=== PATIENT | female | born 1930 | race Caucasian/White ===

== ENCOUNTER 2018-08-06 16:13 | Inpatient (IN) | payer MEDICARE, OTHER ==
[2018-08-06 16:58] VITALS: BP 198/86
[2018-08-06] MEDS ORDERED: Magnesium Hydroxide (MOM) 30 mL UDC PO PRN (17:00)
[2018-08-06] MEDS ORDERED: Maalox 30 mL Cup PO PRN (17:00)
--- NOTE | 2018-08-06 20:33 | History & Physical ---
ADMIT DATE: 08/06/2018 HISTORY OF PRESENT ILLNESS: The patient is an 87-year-old female with long history of hypertension, hyperlipidemia, degenerative joint disease, psychosis, admitted to [facility] on 08/06/2018 for above treatment. The patient admitted under Dr. Wright's service. The patient denies any chest pain, shortness of breath, nausea, vomiting, fever or chills. On arrival, her systolic blood pressure was above 200. The patient has apparently been refusing taking her medication. The patient denies any chest pain, nausea, vomiting, fever or chills. PAST MEDICAL HISTORY: Hypertension, hyperlipidemia, degenerative joint disease and psychosis. PAST SURGICAL HISTORY: Hysterectomy. ALLERGIES: None. MEDICATIONS: Follow admission reconciliation. SOCIAL HISTORY: No smoking or alcohol. No drugs. FAMILY HISTORY: Noncontributory. REVIEW OF SYSTEMS: IMMUNOSYSTEM: No history of chronic immune disorder. CARDIOVASCULAR SYSTEM: No coronary artery disease. She has history of hypertension. ENDOCRINE SYSTEM: No diabetes or thyroid problem. GASTROINTESTINAL SYSTEM: No upper or lower gastrointestinal bleed. NEUROLOGICAL SYSTEM: No seizure disorder. SKELETOMUSCULAR SYSTEM: No muscular dystrophy. HEMATOLOGIC SYSTEM: No bleeding tendencies. RESPIRATORY SYSTEM: No asthma. GENITOURINARY: No dysuria or hematuria. PHYSICAL EXAMINATION: GENERAL: She is awake, alert and oriented. VITAL SIGNS: Temperature 97.8, heart rate 81 and blood pressure 198/86. HEENT: Normocephalic. Pupils equal, reacting to light and accommodation. Sclerae clear. NECK: Supple. Negative for lymphadenopathy, JVD or bruit. CHEST: Entry of air bilaterally normal. No rhonchi or wheezing. HEART: S1 and S2 normal. No gallop rhythm. ABDOMEN: Soft and bowel sounds positive. EXTREMITIES: No edema. BACK: Nontender. SKIN: Intact. BREAST, PELVIC AND RECTAL: Exam done by primary physician, no complaint. NEUROLOGIC: She is awake, alert, oriented. No focal motor or sensory deficits. Cranial nerves 2-12 are intact. ASSESSMENT: 1. Hypertension. 2. Hyperlipidemia. 3. Degenerative joint disease. 4. Psychosis. PLAN: The patient admitted to [facility] under Dr. Wright's service. Medical problems to be addressed during hospitalization are psychosis and hypertension. Medical problems to be addressed at discharge are psychosis, hypertension, hyperlipidemia, degenerative joint disease. The patient is medically stable for activity. CBC and CMP for tomorrow ordered. Thank you, Dr. Wright for asking me to see your patient. JOB# [id number]
[2018-08-06] MEDS ORDERED: Sulfamethoxazole/TMP 800/160mg Tab PO SCH (21:00)
[2018-08-07] MEDS: Multivitamin Tab PO SCH (09:31)
[2018-08-07] MEDS: Lactobacillus Rhamnosus GG 15 Billion CFU CAP.SPRINK PO SCH (09:31)
[2018-08-07] MEDS ORDERED: Probiotic Screen MC PRN (10:55)
--- NOTE | 2018-08-07 11:48 | Psychiatric Evaluation ---
DATE OF SERVICE: PSYCHIATRIC INITIAL EVALUATION AND MENTAL STATUS EXAM PATIENT'S AGE: 87-year-old. SEX: Female. PHYSICIAN: Dr. Qiu. CHIEF COMPLAINT: Delusion and paranoia. HISTORY OF PRESENT ILLNESS: The patient is an 87-year-old female who I transferred from [facility] to [facility]. The patient has been having grandiose delusions and has been agitated in the [place] where she [facility]. The patient moved recently from [place] to be closer to her daughter. The patient has been refusing to take medications and she also has high blood pressure and she was also refusing to take blood pressure medications. She also was confused and thinks that she is living in [place] and that there is an aeroplane that is private waiting for her to take her back to [place]. The patient also did not recognize that she is living currently in [facility]. I started the patient on Risperdal 0.5 mg everyday while in [facility], but because of her agitation and irritability the patient was transferred to [facility] to monitor and adjust her medications. The patient's daughter who has power of attorney recruiter including for medical treatment agrees to give her the Risperdal after I discussed with the daughter in person the benefits and alternatives and side effects. PAST PSYCHIATRIC HISTORY: The patient has a history of bipolar disorder, but she has not been compliant with any medications. The patient did not see psychiatrist for a long time and she indicated that she does not like to see psychiatrist. PAST MEDICAL HISTORY: Hypertension. FAMILY HISTORY: Noncontributory. SOCIAL HISTORY: The patient lives currently in [facility] in the [facility]. The patient has 1 daughter that is involved within her treatment. No known alcohol or any street drug use. No legal issues or abuse issues. ALLERGIES: No known allergies. MENTAL STATUS EXAMINATION: The patient appears her stated age. Currently, calm and cooperative, but slightly anxious. The patient was complaining of feeling "cold." The patient is slightly suspicious and paranoid. She also is reluctant to take medications. The patient denied any suicidal or homicidal ideations. She denies any auditory or visual hallucinations, but the patient seems to be paranoid and delusional. The patient is alert and she is oriented to time and person, but not to place or date. Slight impairment in her immediate memory, but intact remote and recent memories. Poor insight and poor judgment. She seems to be of average intelligence based on her verbal ability. ASSESSMENT: PRIMARY DIAGNOSIS: Bipolar disorder, mixed episode. Moderate to severe, with psychotic features. SECONDARY DIAGNOSIS: Dementia, moderate, without behavioral problems. TREATMENT PLAN: We will continue Risperdal, but would increase the dose to 0.5 mg twice a day and will adjust the dose. We will work on behavioral modifications. Also, we will work on discharge plans and to find a possible placement after her discharge. ESTIMATED LENGTH OF STAY: 5-7 days. THE PATIENT'S STRENGTHS AND WEAKNESSES: The patient's strength is not clear at this time. Weaknesses: Her ineffective coping and poor judgment. Also, uncooperative with treatment recommendations. AFTER DISCHARGE PLAN: Outpatient treatment and followup will continue with Dr. Qiu as well as in placement. JOB# [id number]
[2018-08-07] MEDS: Sulfamethoxazole/TMP 800/160mg Tab PO SCH ×2 (16:50→21:31)
--- NOTE | 2018-08-07 20:48 | Internal Medicine Prog Note ---
Internal Medicine Subjective - Subjective Service Date: 08/07/18 Patient seen and examined:: with staff Patient is:: awake, verbal, in bed, talking Per staff patient has:: no adverse event (SHE FEELS WELL) Internal Medicine Objective - Physical Exam Vitals and I&O: Vital Signs Temp 98.2 F 08/07/18 06:48 Pulse 85 08/07/18 19:58 Resp 20 08/07/18 06:48 BP 204/74 08/07/18 16:48 Pulse Ox 97 08/07/18 06:48 Intake & Output 08/07/18 08/07/18 08/08/18 06:59 18:59 06:59 Intake Total 240 Balance 240 Intake: Oral 240 Other: # Voids 2 Stool Characteristics Formed Active Medications: Current Medications Acetaminophen (Tylenol) 650 mg PO Q4H PRN PRN Reason: Mild Pain / Temp above 100 Stop: 10/05/18 16:59 Al Hydrox/Mg Hydrox/Simethicone (Maalox) 30 ml PO Q4HR PRN PRN Reason: GI DISTRESS Stop: 10/05/18 16:59 Atorvastatin Calcium (Lipitor) 40 mg PO DAILY [facility]; Protocol Stop: 10/06/18 08:59 Last Admin: 08/07/18 09:31 Dose: 40 mg Carvedilol (Coreg) 25 mg PO BID [facility] Stop: 10/06/18 08:59 Last Admin: 08/07/18 16:48 Dose: 25 mg Dorzolamide/Timolol (Cosopt Ophth Soln) 1 drop EACH EYE BID [facility] Stop: 10/06/18 08:59 Last Admin: 08/07/18 16:50 Dose: 1 drop Lactobacillus Rhamnosus (Culturelle 15b) 1 each PO DAILY [facility] Stop: 10/06/18 08:59 Last Admin: 08/07/18 09:31 Dose: 1 each Lisinopril (Zestril) 40 mg PO DAILY [facility] Stop: 10/06/18 11:59 Last Admin: 08/07/18 12:47 Dose: 40 mg Lorazepam (Ativan) 0.5 mg PO Q4H PRN; Protocol PRN Reason: Agitation Stop: 10/05/18 17:42 Last Admin: 08/07/18 20:11 Dose: 0.5 mg Magnesium Hydroxide (Milk Of Magnesia) 30 ml PO HS PRN PRN Reason: Constipation Miscellaneous (Probiotic Screen) 1 ea [facility] PRN PRN PRN Reason: PROTOCOL Stop: 10/06/18 10:54 Multivitamins/Vitamin C (Theragran) 1 tab PO DAILY [facility] Stop: 10/06/18 08:59 Last Admin: 08/07/18 09:31 Dose: 1 tab Risperidone (Risperdal) 0.5 mg PO DAILY [facility]RIS; Protocol Stop: 10/06/18 08:59 Last Admin: 08/07/18 09:31 Dose: 0.5 mg Risperidone (Risperdal) 0.5 mg PO HS CHRIS; Protocol Stop: 10/06/18 20:59 Trimethoprim/Sulfamethoxazole (Bactrim Ds) 1 tab PO BID [facility] Stop: 08/10/18 14:59 Last Admin: 08/07/18 16:50 Dose: 1 tab General: alert HEENT: NC/AT, PERRLA, EOMI, anicteric sclerae, throat clear Neck: Supple, No JVD, No thyromegaly, +2 carotid pulse wo bruit, No LAD Lungs: CTAB Cardiovascular: RRR, Normal S1, Normal S2, without murmur Abdomen: soft, non-tender, non-distended Extremities: clear Neurological: no change Internal Medicine Assmt/Plan - Assessment Assessment: 1.HTN. 2.HYPERLIPIDEMIA. 3.DJD. 4.PSYCHOSIS. - Plan Plan: CONTINUE ON CURRENT MEDICATION AND DIET
[2018-08-08] MEDS: Lactobacillus Rhamnosus GG 15 Billion CFU CAP.SPRINK PO SCH (09:04)
[2018-08-08] MEDS: Sulfamethoxazole/TMP 800/160mg Tab PO SCH ×2 (09:04→16:40)
[2018-08-08] MEDS: Multivitamin Tab PO SCH (09:04)
--- NOTE | 2018-08-08 09:45 | General Progress Note ---
Subjective - Review of Systems Service Date: 08/08/18 Subjective: resting comfortably no distress Objective - Physical Exam Vitals and I&O: Vital Signs Temp 98 F 08/08/18 06:17 Pulse 68 08/08/18 09:06 Resp 20 08/08/18 06:17 BP 191/77 08/08/18 09:06 Pulse Ox 97 08/08/18 06:17 Active Medications: Current Medications Acetaminophen (Tylenol) 650 mg PO Q4H PRN PRN Reason: Mild Pain / Temp above 100 Stop: 10/05/18 16:59 Al Hydrox/Mg Hydrox/Simethicone (Maalox) 30 ml PO Q4HR PRN PRN Reason: GI DISTRESS Stop: 10/05/18 16:59 Atorvastatin Calcium (Lipitor) 40 mg PO DAILY [facility]RIS; Protocol Stop: 10/06/18 08:59 Last Admin: 08/08/18 09:04 Dose: 40 mg Carvedilol (Coreg) 25 mg PO BID [facility] Stop: 10/06/18 08:59 Last Admin: 08/08/18 09:05 Dose: 25 mg Dorzolamide/Timolol (Cosopt Ophth Soln) 1 drop EACH EYE BID [facility] Stop: 10/06/18 08:59 Last Admin: 08/07/18 16:50 Dose: 1 drop Lactobacillus Rhamnosus (Culturelle 15b) 1 each PO DAILY [facility] Stop: 10/06/18 08:59 Last Admin: 08/08/18 09:04 Dose: 1 each Lisinopril (Zestril) 40 mg PO DAILY [facility] Stop: 10/06/18 11:59 Last Admin: 08/08/18 09:06 Dose: 40 mg Lorazepam (Ativan) 0.5 mg PO Q4H PRN; Protocol PRN Reason: Agitation Stop: 10/05/18 17:42 Last Admin: 08/07/18 20:11 Dose: 0.5 mg Magnesium Hydroxide (Milk Of Magnesia) 30 ml PO HS PRN PRN Reason: Constipation Miscellaneous (Probiotic Screen) 1 ea [facility] PRN PRN PRN Reason: PROTOCOL Stop: 10/06/18 10:54 Multivitamins/Vitamin C (Theragran) 1 tab PO DAILY [facility] Stop: 10/06/18 08:59 Last Admin: 08/08/18 09:04 Dose: 1 tab Risperidone (Risperdal) 0.5 mg PO DAILY [facility] Stop: 10/07/18 08:59 Risperidone (Risperdal) 0.5 mg PO HS [facility] Stop: 10/07/18 20:59 Trimethoprim/Sulfamethoxazole (Bactrim Ds) 1 tab PO BID [facility] Stop: 08/10/18 14:59 Last Admin: 08/08/18 09:04 Dose: 1 tab General: Cooperative, No acute distress HEENT: Atraumatic, PERRLA Neck: Supple, JVD Cardiovascular: Regular rate, Normal S1, Normal S2 Lungs: Clear to auscultation Abdomen: Bowel sounds, Soft Assessment/Plan - Assessment Assessment: 1.HTN. 2.HYPERLIPIDEMIA. 3.DJD. 4.PSYCHOSIS. - Plan Plan: continue current treatment
[2018-08-08] MEDS: risperiDONE 1 mg/mL 30 mL Bottle PO SCH ×2 (10:06→21:36)
--- NOTE | 2018-08-09 01:57 | Progress Notes ---
DATE: 08/08/[address] Qiu. Case was discussed with staff of the patient, reviewed records. This is an 87-year-old female who was admitted on 08/06/2018. She has been delusional, paranoid, who I transferred from [facility] to [facility]. The patient has been having grandiose delusion, has been agitated [facility]. She moved recently from [place] to be closer to her daughter, she has been refusing to take her medication, has high blood pressure. She was also refusing to take blood pressure medication. She is also confused and thinks that she is living in [place] and that there is an aeroplane that is private, waiting for her to take her back to [place]. She did not recognize that she is living in [facility]. The patient's daughter have power of ip attorney including for medical treatment. The patient was started on Risperdal 1 mg twice a day. Continues to be suspicious, guarded. She believes she is getting the wrong medication, no side effects with the medications, no sedation, no nausea, no extrapyramidal symptoms. The patient is unable to make safe plan for self-care. No side effects with the medication, no sedation, no nausea and we will continue to work with the patient in group therapy, milieu therapy, and adjust medication as needed. JOB# [id number]
[2018-08-09] MEDS: Multivitamin Tab PO SCH ×2 (08:22→08:37)
[2018-08-09] MEDS: Sulfamethoxazole/TMP 800/160mg Tab PO SCH ×2 (08:23→16:19)
[2018-08-09] MEDS: Lactobacillus Rhamnosus GG 15 Billion CFU CAP.SPRINK PO SCH (08:23)
[2018-08-09] MEDS: risperiDONE 1 mg/mL 30 mL Bottle PO SCH ×3 (08:28→20:56)
--- NOTE | 2018-08-09 14:17 | Progress Notes ---
DATE: 08/09/2018 PROGRESS ON THE UNIT: Case was discussed with staff of the patient, reviewed records. The patient has been guarded, paranoid, talking to herself, selective with her medications, refusing Risperdal, she may have to be ____, unpredictable, impulsive, needing redirection, and it is hard to adjust her medication, she is not taking that. I tried to persuade her to take her medication; however, she is not receptive. She is also hard of hearing. PLAN: We will continue to work with the patient in group and milieu therapy, adjust medications as needed. JOB# [id number]
--- NOTE | 2018-08-09 18:37 | General Progress Note ---
Subjective - Review of Systems Service Date: 08/09/18 Subjective: resting comfortably no distress Objective - Physical Exam Vitals and I&O: Vital Signs Temp 98.2 F 08/09/18 14:00 Pulse 68 08/09/18 16:20 Resp 20 08/09/18 14:00 BP 122/59 08/09/18 16:20 Pulse Ox 94 08/09/18 14:00 Intake & Output 08/08/18 08/09/18 08/09/18 18:59 06:59 18:59 Intake Total 2955 961 5655 Balance 2572 658 9719 Intake: Oral 8956 009 6374 Other: # Voids 3 3 3 # Bowel Movements 1 0 1 Active Medications: Current Medications Acetaminophen (Tylenol) 650 mg PO Q4H PRN PRN Reason: Mild Pain / Temp above 100 Stop: 10/05/18 16:59 Al Hydrox/Mg Hydrox/Simethicone (Maalox) 30 ml PO Q4HR PRN PRN Reason: GI DISTRESS Stop: 10/05/18 16:59 Atorvastatin Calcium (Lipitor) 40 mg PO DAILY [facility]RIS; Protocol Stop: 10/06/18 08:59 Last Admin: 08/09/18 08:22 Dose: 40 mg Carvedilol (Coreg) 25 mg PO BID [facility] Stop: 10/06/18 08:59 Last Admin: 08/09/18 16:20 Dose: 25 mg Dorzolamide/Timolol (Cosopt Ophth Soln) 1 drop EACH EYE BID [facility] Stop: 10/06/18 08:59 Last Admin: 08/09/18 08:27 Dose: 1 drop Lactobacillus Rhamnosus (Culturelle 15b) 1 each PO DAILY [facility] Stop: 10/06/18 08:59 Last Admin: 08/09/18 08:23 Dose: 1 each Lisinopril (Zestril) 40 mg PO DAILY [facility] Stop: 10/06/18 11:59 Last Admin: 08/09/18 08:22 Dose: 40 mg Lorazepam (Ativan) 0.5 mg PO Q4H PRN; Protocol PRN Reason: Agitation Stop: 10/05/18 17:42 Last Admin: 08/07/18 20:11 Dose: 0.5 mg Magnesium Hydroxide (Milk Of Magnesia) 30 ml PO HS PRN PRN Reason: Constipation Miscellaneous (Probiotic Screen) 1 ea [facility] PRN PRN PRN Reason: PROTOCOL Stop: 10/06/18 10:54 Multivitamins/Vitamin C (Theragran) 1 tab PO DAILY [facility] Stop: 10/06/18 08:59 Last Admin: 08/09/18 08:37 Dose: Not Given Risperidone (Risperdal) 0.5 mg PO DAILY [facility] Stop: 10/07/18 08:59 Last Admin: 08/09/18 08:36 Dose: Not Given Risperidone (Risperdal) 0.5 mg PO HS [facility] Stop: 10/07/18 20:59 Last Admin: 08/08/18 21:36 Dose: Not Given Trimethoprim/Sulfamethoxazole (Bactrim Ds) 1 tab PO BID [facility] Stop: 08/10/18 14:59 Last Admin: 08/09/18 16:19 Dose: 1 tab General: Cooperative, No acute distress HEENT: Atraumatic, PERRLA Neck: Supple, JVD Cardiovascular: Regular rate, Normal S1, Normal S2 Lungs: Clear to auscultation Abdomen: Bowel sounds, Soft Assessment/Plan - Assessment Assessment: 1.HTN. 2.HYPERLIPIDEMIA. 3.DJD. 4.PSYCHOSIS. - Plan Plan: continue current treatment
[2018-08-10] MEDS: Sulfamethoxazole/TMP 800/160mg Tab PO SCH (08:53)
[2018-08-10] MEDS: Multivitamin Tab PO SCH (08:58)
[2018-08-10] MEDS: Lactobacillus Rhamnosus GG 15 Billion CFU CAP.SPRINK PO SCH (08:58)
[2018-08-10] MEDS: risperiDONE 1 mg/mL 30 mL Bottle PO SCH ×2 (09:12→21:10)
--- NOTE | 2018-08-10 19:27 | Internal Medicine Prog Note ---
Internal Medicine Subjective - Subjective Service Date: 08/10/18 Patient seen and examined:: with staff Patient is:: awake, verbal, in bed, talking Per staff patient has:: no adverse event (SHE FEELS WELL) Internal Medicine Objective - Physical Exam Vitals and I&O: Vital Signs Temp 97.2 F 08/10/18 14:00 Pulse 70 08/10/18 17:18 Resp 20 08/10/18 14:00 BP 128/65 08/10/18 17:18 Pulse Ox 97 08/10/18 14:00 Intake & Output 08/10/18 08/10/18 08/11/18 06:59 18:59 06:59 Intake Total 240 800 Balance 240 800 Intake: Oral 240 800 Other: # Voids 1 3 # Bowel Movements 1 Active Medications: Current Medications Acetaminophen (Tylenol) 650 mg PO Q4H PRN PRN Reason: Mild Pain / Temp above 100 Stop: 10/05/18 16:59 Al Hydrox/Mg Hydrox/Simethicone (Maalox) 30 ml PO Q4HR PRN PRN Reason: GI DISTRESS Stop: 10/05/18 16:59 Atorvastatin Calcium (Lipitor) 40 mg PO DAILY [facility]; Protocol Stop: 10/06/18 08:59 Last Admin: 08/10/18 08:58 Dose: Not Given Carvedilol (Coreg) 25 mg PO BID [facility] Stop: 10/06/18 08:59 Last Admin: 08/10/18 17:18 Dose: 25 mg Dorzolamide/Timolol (Cosopt Ophth Soln) 1 drop EACH EYE BID [facility] Stop: 10/06/18 08:59 Last Admin: 08/10/18 17:18 Dose: 1 drop Lactobacillus Rhamnosus (Culturelle 15b) 1 each PO DAILY [facility] Stop: 10/06/18 08:59 Last Admin: 08/10/18 08:58 Dose: 1 each Lisinopril (Zestril) 40 mg PO DAILY [facility] Stop: 10/06/18 11:59 Last Admin: 08/10/18 08:58 Dose: Not Given Lorazepam (Ativan) 0.5 mg PO Q4H PRN; Protocol PRN Reason: Agitation Stop: 10/05/18 17:42 Last Admin: 08/09/18 22:27 Dose: 0.5 mg Magnesium Hydroxide (Milk Of Magnesia) 30 ml PO HS PRN PRN Reason: Constipation Miscellaneous (Probiotic Screen) 1 ea [facility] PRN PRN PRN Reason: PROTOCOL Stop: 10/06/18 10:54 Multivitamins/Vitamin C (Theragran) 1 tab PO DAILY [facility] Stop: 10/06/18 08:59 Last Admin: 08/10/18 08:58 Dose: Not Given Risperidone (Risperdal) 0.5 mg PO DAILY [facility] Stop: 10/07/18 08:59 Last Admin: 08/10/18 09:12 Dose: Not Given Risperidone (Risperdal) 0.5 mg PO HS [facility] Stop: 10/07/18 20:59 Last Admin: 08/09/18 20:56 Dose: Not Given General: alert HEENT: NC/AT, PERRLA, EOMI, anicteric sclerae, throat clear Neck: Supple, No JVD, No thyromegaly, +2 carotid pulse wo bruit, No LAD Lungs: CTAB Cardiovascular: RRR, Normal S1, Normal S2, without murmur Abdomen: soft, non-tender, non-distended Extremities: clear Neurological: no change Internal Medicine Assmt/Plan - Assessment Assessment: 1.HTN. 2.HYPERLIPIDEMIA. 3.DJD. 4.PSYCHOSIS. - Plan Plan: CONTINUE ON CURRENT MEDICATION AND DIET Nutritional Asmnt/Malnutr-PDOC - Dietary Evaluation Malnutrition Findings (Please click <Entered> for more info): Nutritional Asmnt/Malnutrition Start: 08/10/18 12: 34 Text: Status: Complete Freq: Protocol: Document 08/10/18 12:34 SHANTHI (Rec: 08/10/18 12:48 SHANTHI MEADE) Nutritional Asmnt/Malnutrition Patient General Information Nutritional Screening Moderate Risk Diagnosis psychosis Pertinent Medical Hx/Surgical Hx HTN, hyperlipidemia, degenerative joint disease, psychosis Subjective Information Pt eating lunch in room at time of visit, alert and oriented. Pt's hearing impaired; has hearing aids. Pt states she's not enjoying the food much, but likes sandwiches and hot tea. Nursing noted PO intake: 75- 100% average. Current Diet Order/ Nutrition Support cardiac Pertinent Medications maalox, lipitor, culturelle, MOM, theragran, risperdal Pertinent Labs no current lab results available Nutritional Hx/Data Height 1.6 m Height (Calculated Centimeters) 160.0 Current Weight (lbs) 47.174 kg Weight (Calculated Kilograms) 47.2 Weight (Calculated Grams) 86157.6 [place] Body Weight 115 lb Body Mass Index (BMI) 18.4 Weight Status Underweight GI Symptoms GI Symptoms None Last BM 08/09 Difficult in: None Food Allergies No Skin Integrity/Comment: bruises on both mid arms, solomon 17 Current %PO Good (75-100%) Estimated Nutritional Goals BEE in Kcals: Using Current wt Calories/Kcals/Kg 27-32 Kcals Calculated 2733-1205 Protein: Using Current wt Protein g/k-1.2 Protein Calculated 47-57 g Fluid: ml 9711-4854 (1 ml/kcal) Nutritional Problem No current Nutrition Prob Problem no nutrition dx at this time Malnutrition Alert Is there a minimum of two criteria No selected? Query Text:Check all the applicable criteria. A minimum of two criteria are recommended for diagnosis of either severe or non-severe malnutrition. Malnutrition Related to Morbid Obesity Malnutrition related to morbid obesity No Intervention/Recommendation Comments 1. Continue with cardiac diet as ordered d/t hx of HTN and hyperlipidemia. Diet profile updated. 2. Monitor PO intake, wt, and skin integrity 3. F/U as low risk in 7 days, 08/17 Expected Outcomes/Goals Expected Outcomes/Goals 1. PO intake at least 75% of all meals. 2. Wt gain or stability and skin integrity to improve
--- NOTE | 2018-08-10 21:04 | Progress Notes ---
DATE: 08/10/2018 PSYCHIATRIC PROGRESS NOTE SUBJECTIVE: Chart reviewed and the patient interviewed. Also discussed the patient's condition with the staff and reviewed records and labs. The patient is still anxious and is still paranoid. The patient also is still withdrawn and she is still "not trusting anyone." The patient also continued to state that "I want to go to my apartment in [place], I bought it with 5 million dollar." She is still suspicious and is still slightly paranoid. She also has difficulty accepting the fact that she is bipolar and she is still refusing Risperdal, but she is taking all other medications. Discussed with the patient the importance of taking Risperdal and hopefully the patient will agree to do so. ASSESSMENT: The patient is still manicky and still paranoid. TREATMENT PLAN: Continue to monitor her behavior and her condition closely. Also, continue to work on her ineffective coping and her resisting to take medications. Also planning to discuss with patient's daughter, discharge plans and possible placement issue. JOB# [id number]
[2018-08-11] MEDS: Lactobacillus Rhamnosus GG 15 Billion CFU CAP.SPRINK PO SCH ×2 (08:54→10:28)
[2018-08-11] MEDS ORDERED: Haldol Oral Sol.(concentrate) 10 mg/5 mL Udc PO SCH (09:00)
[2018-08-11] MEDS: Multivitamin Tab PO SCH ×2 (09:03→10:29)
[2018-08-11] MEDS: risperiDONE 1 mg/mL 30 mL Bottle PO SCH ×3 (09:03→21:21)
--- NOTE | 2018-08-11 20:38 | Progress Notes ---
DATE: 08/11/2018 SUBJECTIVE: Chart reviewed and the patient interviewed. Also, discussed the patient's condition with the staff and reviewed records and labs. The patient continued to be delusional and continues to think that there is a "rotor pilot waiting for me outside in a private airplane to take me to [place]." The patient also is still resisting care and she is still refusing to take Risperdal in spite of trying to explain to her benefits, side effects and alternatives. The patient also is still restless and she is still in irritable mood. Otherwise, the patient seems to be slightly calmer, but still has grandiose delusions. ASSESSMENT: The patient is still manicky. TREATMENT PLAN: Since the patient has been refusing medications for several days we will talk to patient's ____ and we will try to get approval from her in order to be given medications against her will since the patient's daughter is her conservator. At the same time, we will continue to work on her manic behavior and her grandiose delusions and followup. JOB# [id number]
--- NOTE | 2018-08-11 22:15 | Internal Medicine Prog Note ---
Internal Medicine Subjective - Subjective Service Date: 08/11/18 Patient seen and examined:: with staff Patient is:: awake, verbal, in bed, talking Per staff patient has:: no adverse event (SHE FEELS WELL) Internal Medicine Objective - Physical Exam Vitals and I&O: Vital Signs Temp 98.1 F 08/11/18 19:57 Pulse 66 08/11/18 19:57 Resp 19 08/11/18 19:57 BP 151/74 08/11/18 19:57 Pulse Ox 97 08/11/18 19:57 Intake & Output 08/11/18 08/11/18 08/12/18 06:59 18:59 06:59 Intake Total 180 120 Balance 180 120 Intake: Oral 180 120 Other: # Voids 3 3 # Bowel Movements 0 0 Active Medications: Current Medications Acetaminophen (Tylenol) 650 mg PO Q4H PRN PRN Reason: Mild Pain / Temp above 100 Stop: 10/05/18 16:59 Al Hydrox/Mg Hydrox/Simethicone (Maalox) 30 ml PO Q4HR PRN PRN Reason: GI DISTRESS Stop: 10/05/18 16:59 Atorvastatin Calcium (Lipitor) 40 mg PO DAILY [facility]; Protocol Stop: 10/06/18 08:59 Last Admin: 08/11/18 10:27 Dose: Not Given Carvedilol (Coreg) 25 mg PO BID [facility] Stop: 10/06/18 08:59 Last Admin: 08/11/18 17:13 Dose: 25 mg Dorzolamide/Timolol (Cosopt Ophth Soln) 1 drop EACH EYE BID [facility] Stop: 10/06/18 08:59 Last Admin: 08/11/18 17:13 Dose: 1 drop Haloperidol Lactate (Haldol Concentrate 10mg/5ml Susp) 2 mg PO BID [facility]; Protocol Stop: 10/10/18 08:59 Lactobacillus Rhamnosus (Culturelle 15b) 1 each PO DAILY [facility] Stop: 10/06/18 08:59 Last Admin: 08/11/18 10:28 Dose: Not Given Lisinopril (Zestril) 40 mg PO DAILY [facility] Stop: 10/06/18 11:59 Last Admin: 08/11/18 10:28 Dose: Not Given Lorazepam (Ativan) 0.5 mg PO Q4H PRN; Protocol PRN Reason: Agitation Stop: 10/05/18 17:42 Last Admin: 08/11/18 17:24 Dose: 0.5 mg Magnesium Hydroxide (Milk Of Magnesia) 30 ml PO HS PRN PRN Reason: Constipation Miscellaneous (Probiotic Screen) 1 ea MC PRN PRN PRN Reason: PROTOCOL Stop: 10/06/18 10:54 Multivitamins/Vitamin C (Theragran) 1 tab PO DAILY [facility] Stop: 10/06/18 08:59 Last Admin: 08/11/18 10:29 Dose: Not Given Risperidone (Risperdal) 0.5 mg PO DAILY [facility] Stop: 10/07/18 08:59 Last Admin: 08/11/18 10:30 Dose: Not Given Risperidone (Risperdal) 0.5 mg PO HS [facility] Stop: 10/07/18 20:59 Last Admin: 08/11/18 21:21 Dose: Not Given General: alert HEENT: NC/AT, PERRLA, EOMI, anicteric sclerae, throat clear Neck: Supple, No JVD, No thyromegaly, +2 carotid pulse wo bruit, No LAD Lungs: CTAB Cardiovascular: RRR, Normal S1, Normal S2, without murmur Abdomen: soft, non-tender, non-distended Extremities: clear Neurological: no change Internal Medicine Assmt/Plan - Assessment Assessment: 1.HTN. 2.HYPERLIPIDEMIA. 3.DJD. 4.PSYCHOSIS. - Plan Plan: CONTINUE ON CURRENT MEDICATION AND DIET Nutritional Asmnt/Malnutr-PDOC - Dietary Evaluation Malnutrition Findings (Please click <Entered> for more info): Nutritional Asmnt/Malnutrition Start: 08/10/18 12: 34 Text: Status: Complete Freq: Protocol: Document 08/10/18 12:34 RAKESHNIALL (Rec: 08/10/18 12:48 SHANTHI MEADE) Nutritional Asmnt/Malnutrition Patient General Information Nutritional Screening Moderate Risk Diagnosis psychosis Pertinent Medical Hx/Surgical Hx HTN, hyperlipidemia, degenerative joint disease, psychosis Subjective Information Pt eating lunch in room at time of visit, alert and oriented. Pt's hearing impaired; has hearing aids. Pt states she's not enjoying the food much, but likes sandwiches and hot tea. Nursing noted PO intake: 75- 100% average. Current Diet Order/ Nutrition Support cardiac Pertinent Medications maalox, lipitor, culturelle, MOM, theragran, risperdal Pertinent Labs no current lab results available Nutritional Hx/Data Height 1.6 m Height (Calculated Centimeters) 160.0 Current Weight (lbs) 47.174 kg Weight (Calculated Kilograms) 47.2 Weight (Calculated Grams) [address] [place] [address] Body Weight 115 lb Body Mass Index (BMI) 18.4 Weight Status Underweight GI Symptoms GI Symptoms None Last BM 08/09 Difficult in: None Food Allergies No Skin Integrity/Comment: bruises on both mid arms, solomon 17 Current %PO Good (75-100%) Estimated Nutritional Goals BEE in Kcals: Using Current wt Calories/Kcals/Kg 27-32 Kcals Calculated 7313-6927 Protein: Using Current wt Protein g/k-1.2 Protein Calculated 47-57 g Fluid: ml 4393-3900 (1 ml/kcal) Nutritional Problem No current Nutrition Prob Problem no nutrition dx at this time Malnutrition Alert Is there a minimum of two criteria No selected? Query Text:Check all the applicable criteria. A minimum of two criteria are recommended for diagnosis of either severe or non-severe malnutrition. Malnutrition Related to Morbid Obesity Malnutrition related to morbid obesity No Intervention/Recommendation Comments 1. Continue with cardiac diet as ordered d/t hx of HTN and hyperlipidemia. Diet profile updated. 2. Monitor PO intake, wt, and skin integrity 3. F/U as low risk in 7 days, 08/17 Expected Outcomes/Goals Expected Outcomes/Goals 1. PO intake at least 75% of all meals. 2. Wt gain or stability and skin integrity to improve
--- NOTE | 2018-08-11 23:08 | Progress Notes ---
DATE: 08/11/2018 IDENTIFICATION: An 87-year-old female. SUBJECTIVE: The patient is seen and examined. Chart reviewed. This patient belongs to Dr. Menon who asked me to follow this patient in facility [facility]. Upon further questioning, the patient is anxious to go home. The patient is admitted under care of Dr. Qiu. The patient currently denies any chest pain, shortness of breath, palpitation, dizziness, nausea, vomiting, headache, seizure. PHYSICAL EXAMINATION: VITAL SIGNS: Temperature 98.6, pulse 74, respiratory rate 18, blood pressure 136/80. SKIN: Warm to touch. HEENT: No facial asymmetry. Poor dentition noted. No oral lesion noted. NECK: Supple, no JVD, no hepatojugular reflex. No lymphadenopathy, thyromegaly, or carotid bruit. HEART: Both heart sounds are regular. Rate, 2/6 systolic murmur noted. CHEST AND LUNG: Equal in expansion, no expiratory wheezing. ABDOMEN: Soft, no guarding, no rigidity. Bowel sounds present. No palpable mass. EXTREMITIES: No edema, no cyanosis. Peripheral pulses are +1. No calf tenderness noted. Diffuse osteoarthritic changes noted. NEUROLOGIC: Alert, awake, follows command, moving upper and lower extremities without any difficulty. AVAILABLE DIAGNOSTIC DATA: Performed at [facility] has been reviewed. CLINICAL IMPRESSION: 1. Psychiatric disorder. 2. Hypertension. 3. Dementia by history. 4. Degenerative joint disease. 5. Hyperlipidemia. 6. Diastolic heart failure. 7. Unsteady gait. 8. Hearing loss. PLAN: 1. Monitor blood pressure. 2. Antihypertensive medicine. 3. Psych medication. 4. Psych followup. 5. Keep patient euvolemic. 6. General nursing care. 7. Fall precautions. 8. Nutritional support. 9. We will continue to follow this patient during the stay in the hospital. JOB# [id number]
[2018-08-12] MEDS: Multivitamin Tab PO SCH (09:43)
[2018-08-12] MEDS: risperiDONE 1 mg/mL 30 mL Bottle PO SCH ×2 (09:43→20:39)
[2018-08-12] MEDS: Lactobacillus Rhamnosus GG 15 Billion CFU CAP.SPRINK PO SCH (09:43)
[2018-08-13] MEDS ORDERED: Haloperidol Lactate 5 mg/mL 1mL Vial IM PRN (06:47)
[2018-08-13] MEDS: Lactobacillus Rhamnosus GG 15 Billion CFU CAP.SPRINK PO SCH (10:28)
[2018-08-13] MEDS: Multivitamin Tab PO SCH (10:28)
[2018-08-13] MEDS: risperiDONE 1 mg/mL 30 mL Bottle PO SCH ×2 (10:29→20:50)
--- NOTE | 2018-08-13 10:40 | Progress Notes ---
DATE: 08/12/2018 PSYCHIATRIC PROGRESS NOTE SUBJECTIVE: Chart reviewed and the patient interviewed. Also discussed the patient's condition with the staff and reviewed records and labs. The patient continued to have grandiose delusions and patient is still suspicious and paranoid. The patient also is still guarded. The patient also is still refusing to take Risperdal, although she is taking other medications. She did not give any explanation of why she does not want to take Risperdal or Haldol. She also still thinks that she is going to [place] in a private jet and that ship pilot dispatcher is waiting for her. From my discussion with the daughter yesterday that if the patient continues not to take Haldol or Risperdal that I can give IM injections but she is able to take medications orally. I will give the patient a chance to take medications orally one more time, then we can consider IM injection if she does not comply. At the same time, we will continue monitoring her behavior and her condition and we will continue to follow up. [facility]# [id number]
--- NOTE | 2018-08-13 21:19 | Progress Notes ---
DATE: 08/13/2018 PSYCHIATRIC PROGRESS NOTE SUBJECTIVE: Chart reviewed and the patient interviewed. Also discussed the patient's condition with the staff and reviewed records and labs. The patient continued to be delusional and paranoid. The patient also is still restless and still has difficulty with her mood. The patient also is interacting minimally with peers and others. She also is having mood swings. The patient still insisted that there is fire pilot outside waiting for her to take her to [place]. At the same time, the patient is refusing to take Haldol or Risperdal or any medications yesterday according to staff. ASSESSMENT: The patient is still psychotic and agitated. TREATMENT PLAN: I tried in different ways to convince the patient to take medications for her psychosis and agitation, but the patient has been refusing. My discussion with the patient's daughter that if the patient continued to refuse to take antipsychotic medications Haldol and/or Risperdal whether in a tablet form or liquid form that we will give her injection till the patient is willing to take the medications regularly. At the same time, we will continue to work on her poor judgment and on her paranoia and we will continue to follow up. Also, we will start the patient on Haldol injection if she refuses to take tablet. The patient's daughter is the power of workers compensation attorney for medical treatment. JOB# [id number]
--- NOTE | 2018-08-14 00:25 | Progress Notes ---
DATE: IDENTIFICATION: An 87-year-old female. SUBJECTIVE: The patient seen and examined. The patient is lying in the bed. The patient denies any chest pain, shortness of breath, palpitation, dizziness, nausea, or vomiting. PHYSICAL EXAMINATION: VITAL SIGNS: Temperature 97.6, pulse 64, respiratory rate 18, and blood pressure 136/80. HEENT: No facial asymmetry. NECK: Supple, no JVD. HEART: Regular. CHEST: Lung equal in expansion, no expiratory wheezing. ABDOMEN: Soft. EXTREMITIES: No edema. CLINICAL IMPRESSION: 1. Psychotic disorder. 2. Hypertension. 3. Dementia. 4. Degenerative joint disease. 5. Hyperlipidemia. 6. Diastolic heart failure. 7. Unsteady gait. 8. Hearing loss. PLAN: 1. Psych medication and psych followup. 2. Antihypertensive medicine. 3. Fall precautions. 4. Statin. 5. General nursing care. 6. Nutritional support. 7. Care plan reviewed and discussed with staff. JOB# [id number]
[2018-08-14] MEDS: Lactobacillus Rhamnosus GG 15 Billion CFU CAP.SPRINK PO SCH (09:16)
[2018-08-14] MEDS: Multivitamin Tab PO SCH (09:17)
[2018-08-14] MEDS: risperiDONE 1 mg/mL 30 mL Bottle PO SCH ×2 (09:17→20:55)
--- NOTE | 2018-08-14 21:31 | Progress Notes ---
DATE: 08/14/2018 SUBJECTIVE: Chart reviewed and the patient interviewed. Also, discussed the patient's condition with the staff and reviewed records and labs. The patient's affect is slightly brighter, but she is still in angry and in irritable mood. The patient also had difficulty following directions and she is still resisting care and resisting taking medications, but yesterday she did take the Haldol. She refused to take Risperdal liquid, which is fine and I am planning to discontinue Risperdal in the near future if she continued to take Haldol. The patient is also angry with her daughter and she is still delusional and paranoid, talking about her want to go to her house in [place] and that there is a pilot plant operator and airplane waiting for her. ASSESSMENT: The patient is still manicky and still has grandiose delusions and psychotic. TREATMENT PLAN: We will continue monitoring behavior and continue to follow up closely. Also, continue working on her compliant with taking her medications. JOB# [id number]
[2018-08-15] MEDS: Multivitamin Tab PO SCH ×2 (08:36→08:43)
[2018-08-15] MEDS: Lactobacillus Rhamnosus GG 15 Billion CFU CAP.SPRINK PO SCH ×2 (08:37→08:43)
[2018-08-15] MEDS: risperiDONE 1 mg/mL 30 mL Bottle PO SCH ×2 (08:43→20:15)
--- NOTE | 2018-08-15 09:03 | Progress Notes ---
DATE: 08/15/2018 SUBJECTIVE: An 87-year-old female transferred from [facility]. The patient with grandiose delusions, agitated, recently move from [place] to be closer to the daughter, the patient has been refusing to take medications. Also with high blood pressure, refusing to take blood pressure medications, believing that she was still living in [place]. The patient states that "My ____ family brought me here." The patient believes she is here because of blood pressure went up and her plan is to go back to [place]. The patient seems to have history of bipolar disorder, remains confused, somewhat disoriented. She is calm on exam. The patient believes that she is going to go to the airport today. Not oriented to date or place. ASSESSMENT: The patient remains symptomatic, believing that the daughter has been hiding her medications, has no idea why she is in the hospital. Medications were reviewed including dosages and frequencies. PLAN: We will continue to monitor. The patient is currently on Risperdal and agreed upon dose between Dr. Carranza and the patient's daughter has power of attorney recruiter. Continue Haldol. No side effects noted. The patient remains symptomatic, not safe for a lower level of care. [facility]# [id number]
[2018-08-15] MEDS: Haloperidol Lactate 5 mg/mL 1mL Vial IM PRN ×2 (09:28→16:56)
--- NOTE | 2018-08-15 19:32 | Progress Notes ---
DATE: IDENTIFICATION: An 87-year-old female. SUBJECTIVE: The patient seen and examined. The patient was walking around in the hallway and discussed with nursing staff about their concerns. The patient denies any chest pain, shortness of breath, palpitations, or dizziness. OBJECTIVE: VITAL SIGNS: Temperature 98.5, pulse is 75, respiratory rate is 18, blood pressure 144/74. HEENT: No facial asymmetry. NECK: Supple, no JVD. HEART: Both heart sounds are regular. CHEST AND LUNGS: Equal in expansion, no expiratory wheezing. ABDOMEN: Soft. EXTREMITIES: No edema. CLINICAL IMPRESSION: 1. Hypertension. 2. Hyperlipidemia. 3. Degenerative joint disease. 4. Glaucoma. 5. Psychotic disorder. PLAN: 1. Continue Lipitor for hyperlipidemia. 2. Monitor blood pressure and continue carvedilol and lisinopril. 3. Psychotic evaluation and management deferred to psychiatrist. 4. Continue dorzolamide and timolol eyedrops for glaucoma. 5. Continue to provide nutritional support and general nursing care. JOB# [id number]
--- NOTE | 2018-08-16 06:44 | Progress Notes ---
DATE: 08/16/2018 The patient coming in from [facility], not taking medications, upset. Her family brought her here. History of bipolar, still confused, disoriented, originally believing that the daughter was hiding medications, does not know why she is in the hospital. The patient slept fairly well. Sleeping, but arousable. Poor orientation. Poor impulse control. Still suspicious, believing Dr. Qiu is not a real doctor. Not wanting to take any medications. ASSESSMENT: The patient remains asymptomatic, refusing care, ongoing psychotic symptoms. PLAN: We will continue to monitor, ongoing concerns about agitation, poor impulse control. Medications were reviewed. JOB# [id number]
[2018-08-16] MEDS: Lactobacillus Rhamnosus GG 15 Billion CFU CAP.SPRINK PO SCH ×2 (09:59→10:16)
[2018-08-16] MEDS: Multivitamin Tab PO SCH ×2 (10:07→10:16)
[2018-08-16] MEDS: risperiDONE 1 mg/mL 30 mL Bottle PO SCH ×2 (10:07→21:30)
[2018-08-16] MEDS: Haloperidol Lactate 5 mg/mL 1mL Vial IM PRN (10:16)
[2018-08-17] MEDS: Multivitamin Tab PO SCH (08:26)
[2018-08-17] MEDS: Lactobacillus Rhamnosus GG 15 Billion CFU CAP.SPRINK PO SCH (08:28)
[2018-08-17] MEDS: risperiDONE 1 mg/mL 30 mL Bottle PO SCH ×2 (09:56→21:34)
--- NOTE | 2018-08-17 16:49 | Progress Notes ---
DATE: 08/17/2018 SUBJECTIVE: The patient coming in from [facility], upset, history of bipolar, still confused, disoriented, still believing that I was hiding medications. The patient does not know why she is in the hospital, poorly oriented. The patient remains confused, suspicious, highly guarded, does not want to talk to me today, still isolative, withdrawn, irritable. Medications were reviewed including dosages. The patient slept about 7 hours last night. ASSESSMENT: The patient withdrawn, making statements that the psychiatrist are not real doctor, does not want to take medications. We will continue to monitor. The patient remains symptomatic. Given ongoing symptoms, she is not safe for discharge. [facility]# [id number]
[2018-08-18] MEDS: risperiDONE 1 mg/mL 30 mL Bottle PO SCH ×2 (09:35→21:36)
[2018-08-18] MEDS: Lactobacillus Rhamnosus GG 15 Billion CFU CAP.SPRINK PO SCH (09:35)
[2018-08-18] MEDS: Multivitamin Tab PO SCH (09:35)
--- NOTE | 2018-08-18 16:06 | Progress Notes ---
DATE: 08/18/2018 SUBJECTIVE: The patient is currently in the hospital, calm, cooperative, apparently refusing psychotropic medications. Ongoing concerns about psychosis, suspicions, knows the year, the month, not quite sure about the date. She knows where she is. She has no idea why she is here. ASSESSMENT: The patient withdrawn, isolative, minimizing her symptoms apparently with grandiose delusions, believing that there was a private jet waiting for her to take her back to [place]. The patient is still unstable and not safe for a lower level of care, there are concerns that she will continue to refuse medications. Consider finding a [employer] petition. JOB# [id number]
[2018-08-19] MEDS: Lactobacillus Rhamnosus GG 15 Billion CFU CAP.SPRINK PO SCH (08:32)
[2018-08-19] MEDS: Multivitamin Tab PO SCH (08:32)
[2018-08-19] MEDS: risperiDONE 1 mg/mL 30 mL Bottle PO SCH ×2 (08:33→21:41)
[2018-08-19] MEDS: Haloperidol Lactate 5 mg/mL 1mL Vial IM PRN (18:28)
--- NOTE | 2018-08-19 20:51 | Progress Notes ---
DATE: 08/19/2018 PSYCHIATRIC PROGRESS NOTE SUBJECTIVE: Chart reviewed and the patient interviewed. Also, discussed the patient's condition with the staff and reviewed records and labs. The patient still seems to be confused. The patient also is slightly calmer than before and she is able to follow directions easily. The patient also still has periods of paranoia and suspicious, but she is compliant with taking her medications with no side effect of medications. Only medicine she has been refusing is Risperdal, but she has been taking Haldol. ASSESSMENT: The patient is still psychotic and still needs close monitoring. TREATMENT PLAN: Continue to monitor her behavior and her condition closely. Also, we will work on possible discharge plans and placement issue. [facility]# [id number]
[2018-08-20] MEDS: Multivitamin Tab PO SCH (08:22)
[2018-08-20] MEDS: Lactobacillus Rhamnosus GG 15 Billion CFU CAP.SPRINK PO SCH (08:23)
[2018-08-20] MEDS: risperiDONE 1 mg/mL 30 mL Bottle PO SCH ×2 (08:23→21:09)
--- NOTE | 2018-08-21 07:41 | Progress Notes ---
DATE: 08/20/2018 PSYCHIATRIC PROGRESS NOTE SUBJECTIVE: Chart reviewed and the patient interviewed. Also discussed the patient's condition with the staff and reviewed records and labs. Also I called the patient's daughter and discussed with her treatment plan briefly because she was in a football game for her son and she was not able to talk much and we will discuss the case tomorrow again. The patient seems to be calmer and less agitated and less irritable. She also is more compliant with taking her medications except Risperdal. The patient also is still slightly confused and forgetful, but no major behavior problems. She still has grandiose delusions and she is still talking about her house in [place] and that she wants to go there. Otherwise, the patient is compliant with taking medications except Risperdal. ASSESSMENT: The patient seems to be slightly calmer and seems to be slightly less agitated. TREATMENT PLAN: Continue to monitor her behavior closely and also continue to work on her adjusting psychotropic medications. Also, working with the patient's daughter in regard to discharge plans and placement issue. JOB# [id number]
[2018-08-21] MEDS: Multivitamin Tab PO SCH (08:20)
[2018-08-21] MEDS: Lactobacillus Rhamnosus GG 15 Billion CFU CAP.SPRINK PO SCH (08:27)
--- NOTE | 2018-08-21 09:22 | Progress Notes ---
DATE: 08/21/2018 DATE: 08/21/2018 SUBJECTIVE: Chart reviewed and the patient interviewed. Also discussed the patient's condition with the staff and reviewed records and labs. The patient is still anxious and she is still slightly confused about cooperative with treatment and is able to carry on conversation more coherently. The patient also is interacting more. The patient also denies any hallucinations or delusions, but she still has some grandiose delusions in regard to her home and living in [place] and having her own place in [place]. Otherwise, the patient is compliant with taking her medications with no side effects of medications. ASSESSMENT: The patient is less agitated, less irritable. TREATMENT PLAN: I spoke with the patient's daughter again this morning. The patient's daughter had some concern that the patient might have fine tremors in her legs. The patient has no specific complaints and does not think was noted. At the same time, the patient is taking Risperdal and Haldol because she was refusing to take both, but currently she took both for the first time yesterday. PLAN: Includes to stop Risperdal. Also discussed with the patient's daughter who is her conservator, starting the patient on Haldol Decanoate injection for better compliance and she agreed to do so. We will start the patient on Haldol Decanoate 12.5 mg every month and at the same time, we will start to decrease Haldol tablets and will continue to follow up her condition closely. Also, we will stop Risperdal completely. [facility]# [id number]
[2018-08-22] MEDS: Lactobacillus Rhamnosus GG 15 Billion CFU CAP.SPRINK PO SCH (08:46)
[2018-08-22] MEDS: Multivitamin Tab PO SCH (08:48)
--- NOTE | 2018-08-22 16:36 | General Progress Note ---
Subjective - Review of Systems Service Date: 08/22/18 Subjective: resting comfortably no distress Objective - Physical Exam Vitals and I&O: Vital Signs Temp 98.5 F 08/22/18 14:00 Pulse 70 08/22/18 16:24 Resp 18 08/22/18 14:00 BP 150/72 08/22/18 16:24 Pulse Ox 97 08/22/18 14:00 Intake & Output 08/21/18 08/22/18 08/22/18 18:59 06:59 18:59 Intake Total 900 Balance 900 Intake: Oral 900 Other: # Voids 3 # Bowel Movements 1 Active Medications: Current Medications Acetaminophen (Tylenol) 650 mg PO Q4H PRN PRN Reason: Mild Pain / Temp above 100 Stop: 10/05/18 16:59 Al Hydrox/Mg Hydrox/Simethicone (Maalox) 30 ml PO Q4HR PRN PRN Reason: GI DISTRESS Stop: 10/05/18 16:59 Atorvastatin Calcium (Lipitor) 40 mg PO DAILY CHRIS; Protocol Stop: 10/06/18 08:59 Last Admin: 08/22/18 08:47 Dose: 40 mg Carvedilol (Coreg) 25 mg PO BID CHRIS Stop: 10/06/18 08:59 Last Admin: 08/22/18 16:24 Dose: 25 mg Dorzolamide/Timolol (Cosopt Ophth Soln) 1 drop EACH EYE BID CHRIS Stop: 10/06/18 08:59 Last Admin: 08/22/18 16:22 Dose: 1 drop Haloperidol (Haldol) 1 mg PO BID CHRIS; Protocol Stop: 10/20/18 08:59 Last Admin: 08/22/18 16:23 Dose: 1 mg Haloperidol Decanoate (Haldol Dec) 12.5 mg IM QMONTH CHRIS; Protocol Stop: 10/21/18 08:59 Last Admin: 08/22/18 08:46 Dose: 12.5 mg Haloperidol Lactate (Haldol) 2 mg IM BID PRN PRN Reason: Psychosis if pt refuses po Stop: 10/12/18 06:46 Last Admin: 08/19/18 18:28 Dose: 2 mg Lactobacillus Rhamnosus (Culturelle 15b) 1 each PO DAILY CHRIS Stop: 10/06/18 08:59 Last Admin: 08/22/18 08:46 Dose: 1 each Lisinopril (Zestril) 40 mg PO DAILY CHRIS Stop: 10/06/18 11:59 Last Admin: 08/22/18 08:48 Dose: 40 mg Lorazepam (Ativan) 0.5 mg PO Q4H PRN; Protocol PRN Reason: Agitation Stop: 10/05/18 17:42 Last Admin: 08/21/18 21:20 Dose: 0.5 mg Magnesium Hydroxide (Milk Of Magnesia) 30 ml PO HS PRN PRN Reason: Constipation Miscellaneous (Probiotic Screen) 1 ea MC PRN PRN PRN Reason: PROTOCOL Stop: 10/06/18 10:54 Multivitamins/Vitamin C (Theragran) 1 tab PO DAILY CHRIS Stop: 10/06/18 08:59 Last Admin: 08/22/18 08:48 Dose: 1 tab General: Cooperative, No acute distress HEENT: Atraumatic, PERRLA Neck: Supple, JVD Cardiovascular: Regular rate, Normal S1, Normal S2 Lungs: Clear to auscultation Abdomen: Bowel sounds, Soft Assessment/Plan - Assessment Assessment: 1.HTN. 2.HYPERLIPIDEMIA. 3.DJD. 4.PSYCHOSIS. - Plan Plan: continue current treatment Nutritional Asmnt/Malnutr-PDOC - Dietary Evaluation Malnutrition Findings (Please click <Entered> for more info): Nutritional Asmnt/Malnutrition Start: 08/10/18 12: 34 Text: Status: Complete Freq: Protocol: Document 08/10/18 12:34 SHANTHI (Rec: 08/10/18 12:48 SHANTHI MEADE) Nutritional Asmnt/Malnutrition Patient General Information Nutritional Screening Moderate Risk Diagnosis psychosis Pertinent Medical Hx/Surgical Hx HTN, hyperlipidemia, degenerative joint disease, psychosis Subjective Information Pt eating lunch in room at time of visit, alert and oriented. Pt's hearing impaired; has hearing aids. Pt states she's not enjoying the food much, but likes sandwiches and hot tea. Nursing noted PO intake: 75- 100% average. Current Diet Order/ Nutrition Support cardiac Pertinent Medications maalox, lipitor, culturelle, MOM, theragran, risperdal Pertinent Labs no current lab results available Nutritional Hx/Data Height 1.6 m Height (Calculated Centimeters) 160.0 Current Weight (lbs) 47.174 kg Weight (Calculated Kilograms) 47.2 Weight (Calculated Grams) 33232.6 [place] Body Weight 115 lb Body Mass Index (BMI) 18.4 Weight Status Underweight GI Symptoms GI Symptoms None Last BM 08/09 Difficult in: None Food Allergies No Skin Integrity/Comment: bruises on both mid arms, solomon 17 Current %PO Good (75-100%) Estimated Nutritional Goals BEE in Kcals: Using Current wt Calories/Kcals/Kg 27-32 Kcals Calculated 4446-3238 Protein: Using Current wt Protein g/k-1.2 Protein Calculated 47-57 g Fluid: ml 5081-5730 (1 ml/kcal) Nutritional Problem No current Nutrition Prob Problem no nutrition dx at this time Malnutrition Alert Is there a minimum of two criteria No selected? Query Text:Check all the applicable criteria. A minimum of two criteria are recommended for diagnosis of either severe or non-severe malnutrition. Malnutrition Related to Morbid Obesity Malnutrition related to morbid obesity No Intervention/Recommendation Comments 1. Continue with cardiac diet as ordered d/t hx of HTN and hyperlipidemia. Diet profile updated. 2. Monitor PO intake, wt, and skin integrity 3. F/U as low risk in 7 days, 08/17 Expected Outcomes/Goals Expected Outcomes/Goals 1. PO intake at least 75% of all meals. 2. Wt gain or stability and skin integrity to improve
--- NOTE | 2018-08-23 00:16 | Progress Notes ---
DATE: 08/22/2018 Case was discussed with staff of the patient, reviewed records. We will ____ before covering for Dr. Qiu. The patient continues to be anxious, confused, continues to be at times incoherent, delusional, grandiose. She has been compliant with the medication with no side effects. Daughter has been in contact with Dr. Qiu and was concerned the patient might have fine tremors in her legs as this is complaint. Daughter is her conservator. The patient was started on Haldol Decanoate by Dr. Qiu 12.5 mg every month and 2 mg twice a day as needed and 1 mg twice a day. We will continue to work with the patient in group therapy, milieu therapy, and adjust the medication as needed. JOB# [id number]
[2018-08-23] MEDS: Lactobacillus Rhamnosus GG 15 Billion CFU CAP.SPRINK PO SCH (09:25)
[2018-08-23] MEDS: Multivitamin Tab PO SCH (09:26)
--- NOTE | 2018-08-23 15:42 | General Progress Note ---
Subjective - Review of Systems Service Date: 08/23/18 Subjective: resting comfortably no distress Objective - Physical Exam Vitals and I&O: Vital Signs Temp 98.1 F 08/23/18 15:00 Pulse 64 08/23/18 15:00 Resp 20 08/23/18 15:00 BP 109/70 08/23/18 15:00 Pulse Ox 97 08/23/18 15:00 Intake & Output 08/22/18 08/23/18 08/23/18 18:59 06:59 18:59 Intake Total 240 Balance 240 Intake: Oral 240 Other: # Voids 2 # Bowel Movements 1 Active Medications: Current Medications Acetaminophen (Tylenol) 650 mg PO Q4H PRN PRN Reason: Mild Pain / Temp above 100 Stop: 10/05/18 16:59 Al Hydrox/Mg Hydrox/Simethicone (Maalox) 30 ml PO Q4HR PRN PRN Reason: GI DISTRESS Stop: 10/05/18 16:59 Atorvastatin Calcium (Lipitor) 40 mg PO DAILY CHRIS; Protocol Stop: 10/06/18 08:59 Last Admin: 08/23/18 09:25 Dose: 40 mg Carvedilol (Coreg) 25 mg PO BID CHRIS Stop: 10/06/18 08:59 Last Admin: 08/23/18 09:25 Dose: 25 mg Dorzolamide/Timolol (Cosopt Ophth Soln) 1 drop EACH EYE BID CHRIS Stop: 10/06/18 08:59 Last Admin: 08/23/18 09:26 Dose: 1 drop Haloperidol (Haldol) 1 mg PO BID CHRIS; Protocol Stop: 10/20/18 08:59 Last Admin: 08/23/18 09:25 Dose: 1 mg Haloperidol Decanoate (Haldol Dec) 12.5 mg IM QMONTH CHRIS; Protocol Stop: 10/21/18 08:59 Last Admin: 08/22/18 08:46 Dose: 12.5 mg Haloperidol Lactate (Haldol) 2 mg IM BID PRN PRN Reason: Psychosis if pt refuses po Stop: 10/12/18 06:46 Last Admin: 08/19/18 18:28 Dose: 2 mg Lactobacillus Rhamnosus (Culturelle 15b) 1 each PO DAILY CHRIS Stop: 10/06/18 08:59 Last Admin: 08/23/18 09:25 Dose: 1 each Lisinopril (Zestril) 40 mg PO DAILY CHRIS Stop: 10/06/18 11:59 Last Admin: 08/23/18 09:25 Dose: 40 mg Lorazepam (Ativan) 0.5 mg PO Q4H PRN; Protocol PRN Reason: Agitation Stop: 10/05/18 17:42 Last Admin: 08/23/18 03:13 Dose: 0.5 mg Magnesium Hydroxide (Milk Of Magnesia) 30 ml PO HS PRN PRN Reason: Constipation Miscellaneous (Probiotic Screen) 1 ea MC PRN PRN PRN Reason: PROTOCOL Stop: 10/06/18 10:54 Multivitamins/Vitamin C (Theragran) 1 tab PO DAILY CHRIS Stop: 10/06/18 08:59 Last Admin: 08/23/18 09:26 Dose: 1 tab General: Cooperative, No acute distress HEENT: Atraumatic, PERRLA Neck: Supple, JVD Cardiovascular: Regular rate, Normal S1, Normal S2 Lungs: Clear to auscultation Abdomen: Bowel sounds, Soft Assessment/Plan - Assessment Assessment: 1.HTN. 2.HYPERLIPIDEMIA. 3.DJD. 4.PSYCHOSIS. - Plan Plan: continue current treatment Nutritional Asmnt/Malnutr-PDOC - Dietary Evaluation Malnutrition Findings (Please click <Entered> for more info): Nutritional Asmnt/Malnutrition Start: 08/10/18 12: 34 Text: Status: Complete Freq: Protocol: Document 08/10/18 12:34 SHANTHI (Rec: 08/10/18 12:48 SHANTHI MEADE) Nutritional Asmnt/Malnutrition Patient General Information Nutritional Screening Moderate Risk Diagnosis psychosis Pertinent Medical Hx/Surgical Hx HTN, hyperlipidemia, degenerative joint disease, psychosis Subjective Information Pt eating lunch in room at time of visit, alert and oriented. Pt's hearing impaired; has hearing aids. Pt states she's not enjoying the food much, but likes sandwiches and hot tea. Nursing noted PO intake: 75- 100% average. Current Diet Order/ Nutrition Support cardiac Pertinent Medications maalox, lipitor, culturelle, MOM, theragran, risperdal Pertinent Labs no current lab results available Nutritional Hx/Data Height 1.6 m Height (Calculated Centimeters) 160.0 Current Weight (lbs) 47.174 kg Weight (Calculated Kilograms) 47.2 Weight (Calculated Grams) 34899.6 [place] Body Weight 115 lb Body Mass Index (BMI) 18.4 Weight Status Underweight GI Symptoms GI Symptoms None Last BM 08/09 Difficult in: None Food Allergies No Skin Integrity/Comment: bruises on both mid arms, solomon 17 Current %PO Good (75-100%) Estimated Nutritional Goals BEE in Kcals: Using Current wt Calories/Kcals/Kg 27-32 Kcals Calculated 6563-6389 Protein: Using Current wt Protein g/k-1.2 Protein Calculated 47-57 g Fluid: ml 8442-8524 (1 ml/kcal) Nutritional Problem No current Nutrition Prob Problem no nutrition dx at this time Malnutrition Alert Is there a minimum of two criteria No selected? Query Text:Check all the applicable criteria. A minimum of two criteria are recommended for diagnosis of either severe or non-severe malnutrition. Malnutrition Related to Morbid Obesity Malnutrition related to morbid obesity No Intervention/Recommendation Comments 1. Continue with cardiac diet as ordered d/t hx of HTN and hyperlipidemia. Diet profile updated. 2. Monitor PO intake, wt, and skin integrity 3. F/U as low risk in 7 days, 08/17 Expected Outcomes/Goals Expected Outcomes/Goals 1. PO intake at least 75% of all meals. 2. Wt gain or stability and skin integrity to improve
--- NOTE | 2018-08-23 16:53 | Progress Notes ---
DATE: 08/23/2018 FOLLOWUP PROGRESS NOTE COVERING FOR: Maya Qiu M.D. PROGRESS ON THE UNIT: Case was discussed with staff of the patient, reviewed records. The patient seems to be better, able to carry on a conversation. She is sleeping better, eating better. Her daughter is her conservator. The patient was given Haldol Decanoate after it was approved by her daughter with no side effects, no sedation, no nausea, no extrapyramidal symptoms. PLAN: Working on discharge plan. We will continue to work with the patient in group therapy and milieu therapy, adjust the medication as needed. JOB# [id number]
[2018-08-24] MEDS: Multivitamin Tab PO SCH (08:46)
[2018-08-24] MEDS: Lactobacillus Rhamnosus GG 15 Billion CFU CAP.SPRINK PO SCH (08:46)
--- NOTE | 2018-08-24 08:51 | Progress Notes ---
DATE: 08/24/2018 PSYCHIATRIC PROGRESS NOTE SUBJECTIVE: Chart reviewed and the patient interviewed. Also discussed the patient's condition with the staff and reviewed records and labs. The patient's affect is brighter. The patient seems to be less depressed. The patient also is interacting more with peers and with others. She is still forgetful at times and also she still has some grandiose delusions about her house in [place] and about an aeroplane waiting for her, but at the same time seems to be less than before. The patient otherwise is compliant with taking her medications and she is not refusing the medications anymore. ASSESSMENT: The patient is not agitated and she seems to show improvement. TREATMENT PLAN: We will continue to monitor her behavior and her condition closely. Also, continue to work on her discharge plans and placement issue. I spoke with the patient's daughter last week and waiting for confirmation that the patient can return to previous placement. JOB# [id number]
--- NOTE | 2018-08-24 22:03 | Progress Notes ---
DATE: 08/24/2018 IDENTIFICATION: An 87-year-old female. SUBJECTIVE: The patient seen and examined. The patient is lying in the bed, no new event. PHYSICAL EXAMINATION: VITAL SIGNS: Temperature is 97, pulse is 64, respiratory rate is 18, blood pressure is 130/70. HEENT: No facial asymmetry. Poor dentition noted. NECK: Supple, no JVD. HEART: Regular. CHEST AND LUNGS: Equal in expansion, no expiratory wheezing. ABDOMEN: Soft, no guarding, no rigidity. Liver, spleen palpable. No palpable mass. EXTREMITIES: No edema or cyanosis. NEUROLOGIC: Nonfocal. CLINICAL IMPRESSION: 1. Hypertension. 2. Hyperlipidemia. 3. Degenerative joint disease. 4. Glaucoma. 5. Psychiatric disorder. PLAN: 1. Psych medication and psych followup. 2. Glaucoma drop. 3. Antihypertensive medicine. 4. Statin. 5. Nutritional support. 6. Fall precaution. 7. General nursing care. 8. Care plan reviewed and discussed with staff. JOB# [id number]
[2018-08-25] MEDS: Multivitamin Tab PO SCH (09:04)
[2018-08-25] MEDS: Lactobacillus Rhamnosus GG 15 Billion CFU CAP.SPRINK PO SCH (09:06)
[2018-08-26] MEDS: Multivitamin Tab PO SCH (09:10)
[2018-08-26] MEDS: Lactobacillus Rhamnosus GG 15 Billion CFU CAP.SPRINK PO SCH (09:11)
[2018-08-27] MEDS: Multivitamin Tab PO SCH (08:32)
--- NOTE | 2018-08-28 04:15 | Progress Notes ---
DATE: SUBJECTIVE: Chart reviewed and the patient interviewed and discussed the patient's condition with the staff and reviewed records and labs. The patient is still anxious about her discharge and she still has periods of grandiosity. The patient also still needs redirections. The patient still has difficulty making decisions. On the other hand, the patient is compliant with taking medications with no side effects of medications. ASSESSMENT: The patient is still anxious and is still waiting for placement. TREATMENT PLAN: Continue current treatment and current medications and I decreased the Haldol and stop the Risperdal and the patient continued to take Haldol in a small dose and she really took the Haldol injection a long-acting. Also, working with the patient's daughter in regard to discharge plans and placement issue. JOB# [id number]
[2018-08-28] MEDS: Multivitamin Tab PO SCH (08:43)
--- NOTE | 2018-08-28 09:10 | Progress Notes ---
DATE: 08/27/2018 PATIENT'S IDENTIFYING DATA: An 87-year-old female. SUBJECTIVE: The patient is seen and examined. The patient is lying in the bed. No new events. Discussed with nursing staff. No new concerns. PHYSICAL EXAMINATION: VITAL SIGNS: Temperature 98, pulse is 66, respiratory rate 20, blood pressure 144/80. SKIN: Warm to touch. HEENT: No facial asymmetry. Poor dentition noted. No oral lesions. NECK: Supple. No JVD, lymphadenopathy or thyromegaly. HEART: Both heart sounds are regular. CHEST AND LUNGS: Equal in expansion. No expiratory wheezing. ABDOMEN: Soft, no guarding or rigidity. Bowel sounds present. No palpable mass. EXTREMITIES: No edema. NEUROLOGIC: Nonfocal. CLINICAL IMPRESSION: 1. Hypertension. 2. Hyperlipidemia. 3. Degenerative joint disease. 4. Psychotic disorder. 5. Glaucoma. PLAN: 1. Low sodium diet. 2. Antihypertensive medicine. 3. Statin. 4. General nursing care. 5. Psych medication. 6. Psych followup. 7. Continue current treatment plan as prescribed. 8. Care plan reviewed and discussed with staff. JOB# [id number]
--- NOTE | 2018-08-28 18:22 | Progress Notes ---
DATE: 08/26/2018 SUBJECTIVE: Chart reviewed and the patient interviewed. Also discussed the patient's condition with the staff and reviewed records and labs. Also discussed the patient's condition with the patient's daughter. The patient is still anxious, but her affect is brighter. The patient also has been cooperative and has been compliant with taking her medications. She also has been interacting more appropriately. Otherwise, the patient is denying any suicidal or homicidal ideations and it seems that her delusion and paranoia and manic behavior are less than before. TREATMENT PLAN: Discussed with the patient's daughter discharge plans and the patient was supposed to be discharged, but at the same time, placement is still an issue and the patient's daughter unable to secure placement for the patient until now. At the same time, we will decrease Haldol to 0.5 mg twice a day. The patient already took the Haldol Decanoate injection. Also, monitor her blood pressure because the patient had elevated blood pressure early today. [facility]# [id number]
[2018-08-29] MEDS: Multivitamin Tab PO SCH (09:10)
--- NOTE | 2018-08-29 10:32 | Progress Notes ---
DATE: 08/28/2018 PSYCHIATRIC PROGRESS NOTE Chart reviewed and the patient interviewed. Also discussed the patient's condition with the staff and reviewed records and labs. The patient's affect is brighter. The patient is angry with her daughter and thinks that her daughter is trying to control her life and she is still talking about her desire to go back to live in her own home. She also seems to be slightly confused, but at the same time, she is cooperative with treatment and compliant with taking her medications. She denies any intention to harm herself or others. ASSESSMENT: The patient is calmer and less agitated, but still placement is an issue. TREATMENT PLAN: Plan is to discontinue Haldol tablets since the patient seems to be calmer and she is taking Seroquel and compliant with taking Seroquel. Also, we will continue to work with the patient's daughter in regard to placement issue and discharge plans. JOB# [id number]
[2018-08-30] MEDS: Multivitamin Tab PO SCH (08:38)
--- NOTE | 2018-08-30 21:38 | Progress Notes ---
DATE: 08/25/2018 PSYCHIATRIC PROGRESS NOTE SUBJECTIVE: Chart reviewed and the patient interviewed. Also discussed the patient's condition with the staff and reviewed records and labs. The patient is still anxious about her discharge and the patient is still have episodes of argument and anxiety. The patient also is still slightly confused and showing manic behavior, but easier to follow directions. The patient is still upset with her daughter and thinks her daughter is trying to control her life. Otherwise, the patient is compliant and cooperative with taking her medications with no side effects of medications. PLAN: Plan to discuss with the patient daughter today about discharge plans because hopefully patient will be able to be discharged later on today if placement is available and at the same time, we will continue monitoring her behavior and continue to work on adjusting medication and placement issue. [facility]# [id number]
--- NOTE | 2018-08-30 22:38 | Progress Notes ---
DATE: 08/29/2018 PSYCHIATRIC PROGRESS NOTE SUBJECTIVE: Chart reviewed and the patient interviewed. Also discussed the patient's condition with the staff and reviewed records and labs. The patient continued to be forgetful and she is still having episodes of irritability and anger especially towards her mother. She also is upset because the patient's birthday was yesterday and her daughter did not come to visit her. The patient is still having episodes of anger, but she is not as irritable and not as agitated and she is compliant with taking her medications. TREATMENT PLAN: Continue to work on adjusting psychotropic medication and stop Haldol completely and switch to Seroquel. So far, the patient has been compliant with taking her medications. Hopefully with stopping Haldol that will help the patient's daughter to get her back to her previous placement. JOB# [id number]
[2018-08-31] MEDS: Multivitamin Tab PO SCH (08:44)
--- NOTE | 2018-08-31 09:36 | Progress Notes ---
DATE: 08/30/2018 SUBJECTIVE: Chart reviewed and the patient interviewed. Also, discussed the patient's condition with the staff and reviewed records and labs. The patient continued to be still anxious about beating and she is still angry with her daughter. She is also still suspicious and is still slightly paranoid, but easier to redirect her. She is also compliant with taking her medications with no side effects of medications. ASSESSMENT: The patient is still awaiting for placement and she is still anxious. TREATMENT PLAN: Continue to monitor her behavior. We will be adjusting psychotropic medications. Also, working on placement issues. JOB# [id number]
--- NOTE | 2018-09-01 07:54 | Progress Notes ---
DATE: 08/31/2018 SUBJECTIVE: The patient seen and examined. OBJECTIVE: GENERAL: The patient is lying in the bed. No new event. Discussed with nursing staff about their concerns. VITAL SIGNS: Temperature 97, pulse is 74, respiratory rate is 18, blood pressure 136/76. HEENT: No facial asymmetry. Poor dentition noted. NECK: Supple, no JVD. No lymphadenopathy, thyromegaly. HEART: Both heart sounds are regular. No murmur. CHEST: Lung equal in expansion with no expiratory wheezing. ABDOMEN: Soft. No guarding. No rigidity. Liver and spleen not palpable. No palpable mass. EXTREMITIES: No edema, no cyanosis. NEUROLOGIC: Alert, awake, follows commands. Available medication admission record is reviewed. CLINICAL IMPRESSION: 1. Hypertension. 2. Hyperlipidemia. 3. Degenerative joint disease. 4. Psychotic disorder. 5. Glaucoma. 6. High risk for fall. PLAN: 1. Low sodium diet. 2. Statin. 3. Antihypertensive medicine. 4. Psych medication. 5. Psych followup. 6. General nursing care. 7. Nutritional support. 8. Follow lab. 9. Follow consult recommendation. 10. Care plan reviewed and discussed with staff. JOB# [id number]
[2018-09-01] MEDS: Multivitamin Tab PO SCH (09:23)
[2018-09-02] MEDS: Multivitamin Tab PO SCH (09:11)
--- NOTE | 2018-09-02 23:20 | Progress Notes ---
DATE: 09/01/2018 Chart reviewed and the patient interviewed. Also discussed the patient's condition with the staff and reviewed records and labs. The patient is calm and less agitated and less irritable. She also is interacting more. The patient denies any hallucinations, but seems to be slightly paranoid. She also is still reluctant to take medications. Otherwise, no major behavioral problems. I called the patient's daughter and discussed with her placement issue and the patient's daughter is still unable to secure placement for the patient. After talking to the patient's daughter, I called the medical office administrator of the place where she was living and I called him and I spoke with Marya [phone]. I discussed with him the patient's condition and treatment plans. Marya said that he is going to come to evaluate the patient and if she is appropriate will take her back. He said that he will evaluate the patient either today 09/01/2018 or tomorrow . At the same time, we will continue to monitor behavior and continue to follow up. JOB# [id number]
[2018-09-03] MEDS: Multivitamin Tab PO SCH (09:04)
--- NOTE | 2018-09-03 09:25 | Progress Notes ---
DATE: 08/31/2018 PSYCHIATRIC PROGRESS NOTE SUBJECTIVE: Chart reviewed and the patient interviewed. Also discussed the patient's condition with the staff and reviewed records and labs. The patient is still in angry and in irritable mood. The patient also is still anxious and restless. She also is still having mood swings and she is still at times agitated. Otherwise, the patient is somehow cooperative with her treatment. She denies any intention to harm herself or others. ASSESSMENT: The patient is still anxious and is still working on placement. TREATMENT PLAN: We will continue to monitor behavior and condition closely. Also, continue working on her discharge plans and placement issue. JOB# [id number]
[2018-09-04] MEDS: Multivitamin Tab PO SCH (08:52)
--- NOTE | 2018-09-04 09:26 | Progress Notes ---
DATE: 09/02/2018 SUBJECTIVE: Chart reviewed and the patient interviewed. Also discussed the patient's condition with the staff and reviewed records and labs. The patient is still paranoid and suspicious at times, but more cooperative with her treatment, although she is still refusing Seroquel at times. The patient also is still guarded. She is also interacting minimally with others. Otherwise, she is not having behavioral issues or behavioral problems. I spoke with the parking enforcement manager of the facility where she lives and he was supposedly coming today to interview her and we are waiting for the outcome of the interview. At the same time, we will continue monitoring her condition and continue to work with the patient's daughter in regard to placement and we will continue to follow up. JOB# [id number]
--- NOTE | 2018-09-04 20:50 | Progress Notes ---
DATE: PSYCHIATRIC PROGRESS NOTE SUBJECTIVE: Chart reviewed and the patient interviewed. Also discussed the patient's condition with the staff and reviewed records and labs. Also discussed the patient's condition with the patient's daughter including the discharge plans. The patient is still anxious. The patient also is still depressed and withdrawn. The patient is interacting minimally with peers and with others. She denies any intention to harm herself or others. At the same time, she still has some grandiose delusion about places where she lives and about different options that she has. At the same time, she is interacting slightly more. We spoke with the patient's daughter who has been trying hard to find placement for the patient. She is still talking about possibility of the patient returning to previous placement, but at the same time, she is not clear and think yet from a previous placement. The patient was interviewed yesterday with previous placement, but no confirmation if they are going to take her back or not yet. [facility]# [id number]
[2018-09-05] MEDS: Multivitamin Tab PO SCH (08:34)
--- NOTE | 2018-09-05 14:46 | General Progress Note ---
Subjective - Review of Systems Service Date: 09/05/18 Subjective: resting comfortably no distress Objective - Physical Exam Vitals and I&O: Vital Signs Temp 97.9 F 09/05/18 05:35 Pulse 58 09/05/18 08:35 Resp 18 09/05/18 05:35 BP 169/57 09/05/18 08:35 Pulse Ox 97 09/05/18 05:35 Intake & Output 09/04/18 09/05/18 09/05/18 18:59 06:59 18:59 Intake Total 1000 Balance 1000 Intake: Oral 1000 Other: # Voids 4 # Bowel Movements 1 Active Medications: Current Medications Acetaminophen (Tylenol) 650 mg PO Q4H PRN PRN Reason: Mild Pain / Temp above 100 Stop: 10/05/18 16:59 Al Hydrox/Mg Hydrox/Simethicone (Maalox) 30 ml PO Q4HR PRN PRN Reason: GI DISTRESS Stop: 10/05/18 16:59 Atorvastatin Calcium (Lipitor) 40 mg PO DAILY [facility]; Protocol Stop: 10/06/18 08:59 Last Admin: 09/05/18 08:34 Dose: 40 mg Carvedilol (Coreg) 25 mg PO BID [facility] Stop: 10/06/18 08:59 Last Admin: 09/05/18 08:35 Dose: 25 mg Dorzolamide/Timolol (Cosopt Ophth Soln) 1 drop EACH EYE BID [facility] Stop: 10/06/18 08:59 Last Admin: 09/05/18 08:37 Dose: 1 drop Haloperidol Decanoate (Haldol Dec) 12.5 mg IM QMONTH [facility]; Protocol Stop: 10/21/18 08:59 Last Admin: 08/22/18 08:46 Dose: 12.5 mg Haloperidol Lactate (Haldol) 2 mg IM BID PRN PRN Reason: Psychosis if pt refuses po Stop: 10/12/18 06:46 Last Admin: 08/19/18 18:28 Dose: 2 mg Lisinopril (Zestril) 40 mg PO DAILY [facility] Stop: 10/06/18 11:59 Last Admin: 09/05/18 08:35 Dose: 40 mg Lorazepam (Ativan) 0.5 mg PO Q4H PRN; Protocol PRN Reason: Agitation Stop: 10/05/18 17:42 Last Admin: 09/04/18 20:34 Dose: 0.5 mg Magnesium Hydroxide (Milk Of Magnesia) 30 ml PO HS PRN PRN Reason: Constipation Multivitamins/Vitamin C (Theragran) 1 tab PO DAILY [facility] Stop: 10/06/18 08:59 Last Admin: 09/05/18 08:34 Dose: 1 tab Quetiapine Fumarate (Seroquel) 25 mg PO HS [facility]; Protocol Stop: 10/25/18 20:59 Last Admin: 09/04/18 20:34 Dose: 25 mg General: Cooperative, No acute distress HEENT: Atraumatic, PERRLA Neck: Supple, JVD Cardiovascular: Regular rate, Normal S1, Normal S2 Lungs: Clear to auscultation Abdomen: Bowel sounds, Soft Assessment/Plan - Assessment Assessment: 1.HTN. 2.HYPERLIPIDEMIA. 3.DJD. 4.PSYCHOSIS. - Plan Plan: continue current treatment Nutritional Asmnt/Malnutr-PDOC - Dietary Evaluation Malnutrition Findings (Please click <Entered> for more info): Nutritional Asmnt/Malnutrition Start: 08/10/18 12: 34 Text: Status: Complete Freq: Protocol: Document 08/10/18 12:34 SHANTHI (Rec: 08/10/18 12:48 SHANTHI MEADE) Nutritional Asmnt/Malnutrition Patient General Information Nutritional Screening Moderate Risk Diagnosis psychosis Pertinent Medical Hx/Surgical Hx HTN, hyperlipidemia, degenerative joint disease, psychosis Subjective Information Pt eating lunch in room at time of visit, alert and oriented. Pt's hearing impaired; has hearing aids. Pt states she's not enjoying the food much, but likes sandwiches and hot tea. Nursing noted PO intake: 75- 100% average. Current Diet Order/ Nutrition Support cardiac Pertinent Medications maalox, lipitor, culturelle, MOM, theragran, risperdal Pertinent Labs no current lab results available Nutritional Hx/Data Height 1.6 m Height (Calculated Centimeters) 160.0 Current Weight (lbs) 47.174 kg Weight (Calculated Kilograms) 47.2 Weight (Calculated Grams) 72084.6 [place] Body Weight 115 lb Body Mass Index (BMI) 18.4 Weight Status Underweight GI Symptoms GI Symptoms None Last BM 08/09 Difficult in: None Food Allergies No Skin Integrity/Comment: bruises on both mid arms, solomon 17 Current %PO Good (75-100%) Estimated Nutritional Goals BEE in Kcals: Using Current wt Calories/Kcals/Kg 27-32 Kcals Calculated 1034-2108 Protein: Using Current wt Protein g/k-1.2 Protein Calculated 47-57 g Fluid: ml 5016-4188 (1 ml/kcal) Nutritional Problem No current Nutrition Prob Problem no nutrition dx at this time Malnutrition Alert Is there a minimum of two criteria No selected? Query Text:Check all the applicable criteria. A minimum of two criteria are recommended for diagnosis of either severe or non-severe malnutrition. Malnutrition Related to Morbid Obesity Malnutrition related to morbid obesity No Intervention/Recommendation Comments 1. Continue with cardiac diet as ordered d/t hx of HTN and hyperlipidemia. Diet profile updated. 2. Monitor PO intake, wt, and skin integrity 3. F/U as low risk in 7 days, 08/17 Expected Outcomes/Goals Expected Outcomes/Goals 1. PO intake at least 75% of all meals. 2. Wt gain or stability and skin integrity to improve
--- NOTE | 2018-09-05 23:18 | Progress Notes ---
DATE: 09/04/2018 SUBJECTIVE: Chart reviewed and the patient interviewed. Also, discussed the patient's condition with the staff and reviewed the records and labs. The patient is still anxious about her discharge. The patient is forgetful and she seems to be more frustrated for being in the hospital for long periods of time. The patient also is in a depressed mood. She still had delusions about her old place, but at the same time, she is unable to provide any safe plan for self-care or for discharge. ASSESSMENT: The patient is still psychotic and delusional, but also still needs placement. TREATMENT PLAN: We will continue to monitor behavior and condition. Also, continue to work with the patient's daughter on discharge plans. I called the higher education administrator of the place where she is currently living and they will not take her back and they advised to look for another place. We will inform the patient's daughter with that. JOB# [id number]
--- NOTE | 2018-09-06 05:07 | Progress Notes ---
DATE: SUBJECTIVE: The patient was seen and evaluated. The patient's chart reviewed. This is psychiatric followup note covering for Dr. Qiu. Nursing staff reported that the patient is disengaged, withdrawn, minimally interactive as early as yesterday the patient observed by the primary psychiatrist to be paranoid, suspicious. Today on [id number] evaluation, minimally interactive, minimally participating in interview. MENTAL STATUS EXAMINATION: Disengaged, withdrawn. ASSESSMENT AND PLAN: The patient with intermittent refusal, overwhelmed, distraught and unable to formulate safe plan. We will continue with primary psychiatrist's treatment plan and goals. Medication reviewed, which includes atorvastatin, Coreg, Haldol Decanoate 12.5 q. monthly, 2.5 mg of Haldol twice a day and Seroquel 25 mg p.o. at bedtime. We will continue with primary psychiatrist's treatment plan and goals and a lot of cross titration as per primary psychiatrist. JOB# [id number]
[2018-09-06] MEDS: Multivitamin Tab PO SCH (09:35)
--- NOTE | 2018-09-06 16:35 | General Progress Note ---
Subjective - Review of Systems Service Date: 09/06/18 Subjective: resting comfortably no distress Objective - Physical Exam Vitals and I&O: Vital Signs Temp 97.7 F 09/06/18 14:00 Pulse 74 09/06/18 14:00 Resp 20 09/06/18 14:00 BP 163/74 09/06/18 14:00 Pulse Ox 96 09/06/18 14:00 Intake & Output 09/05/18 09/06/18 09/06/18 18:59 06:59 18:59 Intake Total 240 Balance 240 Intake: Oral 240 Other: # Voids 1 Active Medications: Current Medications Acetaminophen (Tylenol) 650 mg PO Q4H PRN PRN Reason: Mild Pain / Temp above 100 Stop: 10/05/18 16:59 Al Hydrox/Mg Hydrox/Simethicone (Maalox) 30 ml PO Q4HR PRN PRN Reason: GI DISTRESS Stop: 10/05/18 16:59 Atorvastatin Calcium (Lipitor) 40 mg PO DAILY [facility]; Protocol Stop: 10/06/18 08:59 Last Admin: 09/06/18 09:33 Dose: 40 mg Carvedilol (Coreg) 25 mg PO BID [facility] Stop: 10/06/18 08:59 Last Admin: 09/06/18 09:33 Dose: 25 mg Dorzolamide/Timolol (Cosopt Ophth Soln) 1 drop EACH EYE BID [facility] Stop: 10/06/18 08:59 Last Admin: 09/06/18 09:34 Dose: 1 drop Haloperidol Decanoate (Haldol Dec) 12.5 mg IM QMONTH [facility]; Protocol Stop: 10/21/18 08:59 Last Admin: 08/22/18 08:46 Dose: 12.5 mg Haloperidol Lactate (Haldol) 2 mg IM BID PRN PRN Reason: Psychosis if pt refuses po Stop: 10/12/18 06:46 Last Admin: 08/19/18 18:28 Dose: 2 mg Lisinopril (Zestril) 40 mg PO DAILY [facility] Stop: 10/06/18 11:59 Last Admin: 09/06/18 09:35 Dose: 40 mg Lorazepam (Ativan) 0.5 mg PO Q4H PRN; Protocol PRN Reason: Agitation Stop: 10/05/18 17:42 Last Admin: 09/05/18 20:34 Dose: 0.5 mg Magnesium Hydroxide (Milk Of Magnesia) 30 ml PO HS PRN PRN Reason: Constipation Multivitamins/Vitamin C (Theragran) 1 tab PO DAILY [facility] Stop: 10/06/18 08:59 Last Admin: 09/06/18 09:35 Dose: 1 tab Quetiapine Fumarate (Seroquel) 25 mg PO HS [facility]; Protocol Stop: 10/25/18 20:59 Last Admin: 09/05/18 20:34 Dose: 25 mg General: Cooperative, No acute distress HEENT: Atraumatic, PERRLA Neck: Supple, JVD Cardiovascular: Regular rate, Normal S1, Normal S2 Lungs: Clear to auscultation Abdomen: Bowel sounds, Soft Assessment/Plan - Assessment Assessment: 1.HTN. 2.HYPERLIPIDEMIA. 3.DJD. 4.PSYCHOSIS. - Plan Plan: continue current treatment Nutritional Asmnt/Malnutr-PDOC - Dietary Evaluation Malnutrition Findings (Please click <Entered> for more info): Nutritional Asmnt/Malnutrition Start: 08/10/18 12: 34 Text: Status: Complete Freq: Protocol: Document 08/10/18 12:34 SHANTHI (Rec: 08/10/18 12:48 SHANTHI MEADE) Nutritional Asmnt/Malnutrition Patient General Information Nutritional Screening Moderate Risk Diagnosis psychosis Pertinent Medical Hx/Surgical Hx HTN, hyperlipidemia, degenerative joint disease, psychosis Subjective Information Pt eating lunch in room at time of visit, alert and oriented. Pt's hearing impaired; has hearing aids. Pt states she's not enjoying the food much, but likes sandwiches and hot tea. Nursing noted PO intake: 75- 100% average. Current Diet Order/ Nutrition Support cardiac Pertinent Medications maalox, lipitor, culturelle, MOM, theragran, risperdal Pertinent Labs no current lab results available Nutritional Hx/Data Height 1.6 m Height (Calculated Centimeters) 160.0 Current Weight (lbs) 47.174 kg Weight (Calculated Kilograms) 47.2 Weight (Calculated Grams) 07318.6 [place] Body Weight 115 lb Body Mass Index (BMI) 18.4 Weight Status Underweight GI Symptoms GI Symptoms None Last BM 08/09 Difficult in: None Food Allergies No Skin Integrity/Comment: bruises on both mid arms, solomon 17 Current %PO Good (75-100%) Estimated Nutritional Goals BEE in Kcals: Using Current wt Calories/Kcals/Kg 27-32 Kcals Calculated 6113-3010 Protein: Using Current wt Protein g/k-1.2 Protein Calculated 47-57 g Fluid: ml 7397-8073 (1 ml/kcal) Nutritional Problem No current Nutrition Prob Problem no nutrition dx at this time Malnutrition Alert Is there a minimum of two criteria No selected? Query Text:Check all the applicable criteria. A minimum of two criteria are recommended for diagnosis of either severe or non-severe malnutrition. Malnutrition Related to Morbid Obesity Malnutrition related to morbid obesity No Intervention/Recommendation Comments 1. Continue with cardiac diet as ordered d/t hx of HTN and hyperlipidemia. Diet profile updated. 2. Monitor PO intake, wt, and skin integrity 3. F/U as low risk in 7 days, 08/17 Expected Outcomes/Goals Expected Outcomes/Goals 1. PO intake at least 75% of all meals. 2. Wt gain or stability and skin integrity to improve
--- NOTE | 2018-09-07 01:24 | Progress Notes ---
DATE: 09/06/2018 SUBJECTIVE: The patient was seen and evaluated. Covering for Dr. Qiu. Today on [id number] evaluation, the patient continues to be disengaged, withdrawn, minimally interactive, disorganized. MENTAL STATUS EXAMINATION: Disorganized, disengaged, withdrawn. ASSESSMENT AND PLAN: Intermittently reviewed medication, overwhelmed, distraught, unable to formulate a safe plan. We will continue with the current medication regimen to target the patient's severe disorganized state. JOB# [id number]
[2018-09-07] MEDS: Multivitamin Tab PO SCH (08:44)
[2018-09-08] MEDS: Multivitamin Tab PO SCH (08:53)
--- NOTE | 2018-09-08 15:46 | Progress Notes ---
DATE: SUBJECTIVE: Chart reviewed and the patient interviewed. Also discussed the patient's condition with the staff and reviewed records and labs. The patient is still anxious about her discharge date and she is still depressed for being in the hospital for some time, but at the same time, her affect is brighter and she is interacting more with peers and with others. The patient also has been less depressed. The patient also is compliant with taking her medications with no side effects of medications. She is still talking about her placement and waiting for the right placement for the patient. I discussed placement with the patient's daughter. The patient's daughter is trying to find a place for the patient and trying to get her back to the previous placement, but so far not successful. The patient's daughter is trying to get senior trial attorney to be involved. Last Friday, I spoke with the shopping centre manager of a [facility] where the patient was living prior to coming to the hospital and I explained to him that the patient can be discharged to live in his facility, but he informed me that no bed available and that he is waiting for availability for bed, but at the same time, he said that might be better if we can find another place. ASSESSMENT: The patient is depressed, but cooperative and compliant with her treatment. TREATMENT PLAN: After further discussion with the patient's daughter, she is going to look for an senior trial attorney. At the same time, we will keep working on the patient's discharge and if possible, we might have to place the patient in another facility until she can go and return to [facility]. [facility]# [id number]
--- NOTE | 2018-09-08 15:55 | Progress Notes ---
DATE: 09/08/2018 Case was discussed with staff of the patient, reviewed records. This is a well-known case as I have seen him before covering for Dr. Qiu. Apparently, the patient's family has been stuck here. His family wanted to go to the [facility] and not willing to have her go any other place. The patient is still disorganized. Continues to be withdrawn, disengaged, minimal interaction. She is compliant with the medication with no side effects, no sedation, no nausea and no extrapyramidal symptoms. I will continue to work with the patient in group therapy, milieu therapy, and adjust medications as needed. JOB# [id number]
[2018-09-09] MEDS: Multivitamin Tab PO SCH (09:44)
[2018-09-10] MEDS: Multivitamin Tab PO SCH (09:49)
--- NOTE | 2018-09-11 06:59 | Progress Notes ---
DATE: Chart reviewed and the patient interviewed. Also discussed the patient's condition with the staff and reviewed records and labs. The patient is still anxious and depressed for not leaving the hospital and not going back to her old facility, although the facility is still not accepting the patient and I called elementary school social worker and I discussed with her the plan and the patient's daughter got an energy attorney and waiting to hear what the energy attorney is going to do in regard to returning her mother to her old place. At the same time, the patient is cooperative and she is not suicidal or homicidal. She also continues to comply with taking her medications with no side effects of medications. JOB# [id number]
[2018-09-11] MEDS: Multivitamin Tab PO SCH (08:52)
--- NOTE | 2018-09-11 10:03 | Progress Notes ---
DATE: 09/09/2018 SUBJECTIVE: Chart reviewed and the patient interviewed. Also discussed the patient's condition with the staff and reviewed records and labs. The patient is still anxious and seems to be in a depressed mood. The patient also is cooperative. The patient denies any intention to harm herself or others. She is still disappointed for her long hospital stay, but at the same time the patient's daughter contacted her senior attorney to trying to get her back to the facility where she was living before. At the same time, the patient continued to comply with taking her medications with no side effects of medications. ASSESSMENT: The patient is still anxious and seems to be depressed and waiting for placement. [facility]# [id number]
--- NOTE | 2018-09-11 21:33 | Progress Notes ---
DATE: 09/11/2018 SUBJECTIVE: The patient seen and examined. The patient is sitting in the chair, watching television. The patient is alert and awake. The patient currently denies any chest pain or shortness of breath, palpitation or dizziness. OBJECTIVE: VITAL SIGNS: Temperature 98.4, pulse 64, respiratory rate 18, blood pressure 136/62. HEENT: No facial asymmetry. Poor dentition noted. NECK: Supple, no JVD. HEART: Regular. CHEST AND LUNG: Equal in expansion, no expiratory wheezing. ABDOMEN: Soft. EXTREMITIES: No edema. CLINICAL IMPRESSION: 1. Hypertension. 2. Hyperlipidemia. 3. Degenerative joint disease. 4. Psychotic disorder. 5. Glaucoma. 6. High risk for fall. PLAN: 1. Psych medication and Psych followup. 2. Low sodium diet. 3. Statin. 4. Antihypertensive medicine. 5. General nursing care. 6. Nutritional support. 7. Continue current treatment plan as prescribed. 8. We will continue to follow this patient during the stay in the hospital. JOB# [id number]
--- NOTE | 2018-09-12 03:16 | Progress Notes ---
DATE: SUBJECTIVE: Chart reviewed and the patient interviewed. Also discussed the patient's condition with the staff and reviewed records and labs. The patient is still anxious and she is still in a depressed mood. The patient also is still restless and is still worried about where she is going to live. She started to give staff some difficult time in regard to taking her medications simply because of her not leaving. Otherwise, the patient is still taking her medications regularly with no side effects. ASSESSMENT: The patient is still depressed, but less anxious and less manicky. TREATMENT PLAN: Continue to monitor her behavior and her condition closely. Also, continue to work on her ineffective coping and continue to follow up. JOB# [id number]
[2018-09-12] MEDS: Multivitamin Tab PO SCH (10:09)
--- NOTE | 2018-09-12 23:19 | Progress Notes ---
DATE: 09/12/2018 Case was discussed with staff of the patient, reviewed records. This is a well-known case as I have seen him many times covering for Dr. Qiu, awaiting placement. The patient continues to be in a depressed mood. She is also restless, worried about where she is going to live. She has been at times resisting and giving hard time to someone who get her medication. No side effects of medication, no sedation, no nausea. In general, she is better, less anxious, less depressed. I will continue outpatient group therapy, milieu therapy, and adjust medications as needed. JOB# [id number]
[2018-09-13] MEDS: Multivitamin Tab PO SCH (08:43)
--- NOTE | 2018-09-13 13:32 | Progress Notes ---
DATE: 09/13/2018 Case was discussed with staff of the patient, reviewed records. The patient continues to stay to herself. Continues to have episodes of anxiety, agitation. Continues to have poor insight, unpredictable, impulsive ____ refusing to allow her to go any other place except ____ Nursing Facility. No side effects with the medication. No sedation, no nausea and we will continue the patient in group therapy, milieu therapy, adjust medication as needed. JOB# [id number]
[2018-09-14] MEDS: Multivitamin Tab PO SCH (08:51)
--- NOTE | 2018-09-15 01:27 | Progress Notes ---
DATE: SUBJECTIVE: Chart reviewed and the patient interviewed. Also discussed the patient's condition with the staff and reviewed records and labs. I also talked to the patient's daughter and left a message in regard to discharge plans because the patient is still in the hospital and the placement was an issue, although I have been trying to help the daughter with placement of the patient. Yet, she is not very cooperative. ASSESSMENT: The patient is still anxious about her discharge and is still waiting for placement. TREATMENT PLAN: [facility] and will try to send the patient there if the daughter does not agree to take the patient. At the same time, we will continue to monitor her behavior and continue to work on her ineffective coping and continue to follow up. JOB# [id number]
[2018-09-15] MEDS: Multivitamin Tab PO SCH (08:19)
--- NOTE | 2018-09-15 21:28 | Progress Notes ---
DATE: Chart reviewed and the patient interviewed. Also discussed the patient's condition with the staff and reviewed records and labs. The patient is anxious about the discharge place and placement is available now in [facility]. I did place a discharge order. We will try to discharge the patient to [facility] where the daughter finally agreed to send her there and also the place has a room for her. The patient is somehow little bit agitated and little bit irritable and she wants to not to go to other than [facility] where she was living before but at the same time myself and the staff tried to convince her to go to the new placement and we will continue to do so. Hopefully she would be discharged later today. [facility]# [id number]
--- NOTE | 2018-09-17 03:53 | Discharge Summary ---
DATE OF DISCHARGE: 09/15/2018 PATIENT'S AGE: 87-year-old. SEX: Female. PHYSICIAN: Maya Qiu MD, MPH FINAL DIAGNOSES: PRIMARY DIAGNOSIS: Bipolar disorder, mixed episode, [id number], with psychotic features. SECONDARY DIAGNOSIS: Dementia, moderate, with behavioral problems. REASON FOR HOSPITALIZATION: The patient was admitted to the hospital because of increased agitation and delusion and paranoia and I evaluated the patient at [facility], and the patient was hallucinating and the patient was restless and she was thinking that there is an aeroplane waiting outside the hospital to take her to her house in [place] and that she owned the house in [place]. HOSPITAL COURSE: The patient continued to be delusional and paranoid. The patient also was easily irritable and easily agitated. The patient in the beginning was refusing to take medications. The patient was given Seroquel but the patient was refusing to take it in the beginning. The patient then, because of the refusal of medications, was given Haldol. The patient after that was changed to Haldol Decanoate injection. The patient was doing better and she was calmer and she was compliant with her treatment and her medications. The patient decided that she wanted to go back to her previous placement, although she still was talking about going to her house in [place]. The patient's daughter tried to get the patient back, but the facility insisted that she should be of Haldol to get her back and I stopped Haldol and tried to get her back, but the facility still refused to take her with the excuse that they have no bed. I spoke with the charge person there and he came and evaluated the patient and although the patient was doing fine and he said that he will talk to his charge nurse about her going back, yet they were having excuse all the time that they have no bed available. Finally, the patient's daughter was going to have an cyber intel planner and I am not sure if she did or not, but at the end the place did not accept the patient and the patient was accepted in [facility] and the patient was discharged there. Physical exam of the patient showed no major medical issues and the patient was having no health issues while in the hospital. AFTER DISCHARGE PLANS: The patient is discharged to [facility] with plans for followup there. EXPECTED OUTCOME AFTER DISCHARGE: Fair if the patient continues with her treatment and follow up with discharge plans. JOB# [id number]
--- NOTE | 2018-09-21 09:20 | Progress Notes ---
DATE: 09/04/2018 IDENTIFICATION: An 88-year-old female. SUBJECTIVE: The patient seen and examined. The patient is lying in the bed. Unable to get meaningful history from the patient. OBJECTIVE: VITAL SIGNS: Temperature 98, pulse is 64, respiratory rate 18, blood pressure 140/70. HEENT: No facial asymmetry. NECK: Supple, no JVD. HEART: Regular. CHEST: Lungs equal in expansion, no expiratory wheezing. ABDOMEN: Soft. EXTREMITIES: No edema. CLINICAL IMPRESSION: 1. Hypertension. 2. Hyperlipidemia. 3. Degenerative joint disease. 4. Psychotic disorder. 5. Glaucoma. 6. High risk for fall. PLAN: 1. Low-sodium diet. 2. Statin. 3. Antihypertensive medicine. 4. Psych medication. 5. Psych followup. 6. General nursing care. 7. Nutritional support. 8. Care plan reviewed and discussed with staff. JOB# [id number]
== END 2018-09-15 18:10 | DRG 885 ==
LOC: GERO 16:13
PROVIDERS: ADMIT Psychiatry & Neurology Psychiatry; ATTEND Psychiatry & Neurology Psychiatry
DX: F31.64 Bipolar disorder, current episode mixed, severe, with psychotic features (principal); I11.0 Hypertensive heart disease with heart failure; I50.30 Unspecified diastolic (congestive) heart failure; F03.90 Unspecified dementia, unspecified severity, without behavioral disturbance, psychotic disturbance, mood disturbance, and anxiety; M19.90 Unspecified osteoarthritis, unspecified site; E78.5 Hyperlipidemia, unspecified; F29 Unspecified psychosis not due to a substance or known physiological condition; H40.9 Unspecified glaucoma; H91.90 Unspecified hearing loss, unspecified ear; R26.9 Unspecified abnormalities of gait and mobility; Z91.81 History of falling; Z90.710 Acquired absence of both cervix and uterus
CPT/HCPCS: 83036-90; 90899; G0410; J1630; J1631; Z7610